=== PATIENT | male | born 1965 | race Caucasian/White ===

== ENCOUNTER 2020-03-15 05:11 | Inpatient (IN) | payer MEDICARE ==
[2020-03-15 05:48] LABS: #Basophils 0.1 thou/uL (0.0-0.2); #Eosinphils 0.1 thou/uL (0.0-0.7); #Lymphocytes 2.3 thou/uL (1.20-3.40); #Monocytes 0.6 thou/uL (0.11-0.59); #Neutrophils 7.5 thou/uL (1.40-6.50); %Basophils 0.7 % (0.0-1.0); %Eosinophils 1.3 % (0.0-10.0); %Lymphocytes 21.7 % (21.0-51.0); %Monocytes 5.3 % (0.0-10.0); Mean Corpuscular HGB CONC 31.6 g/dL (32.0-36.0); Mean Corpuscular Hemoglobin 24.8 pg (27.0-31.0); Mean Corpuscular Volume 78.4 fL (78.0-98.0); Mean Platelet Volume 9.1 fL (7.4-10.4); Platelet Count 359 thou/uL (130-400); RBC Distribution Width 16.1 % (11.5-14.5); Red Blood Cell (RBC) Count 4.44 mill/uL (4.70-6.10); White Blood Cell (WBC) Count 10.5 thou/uL (4.8-10.8)
[2020-03-15 06:13] LABS: ALT (SGPT) 15 U/L (8-55); AST (SGOT) 19 U/L (5-34); Albumin 4.1 g/dL (3.5-5.0); Alkaline Phosphatase 60 U/L (40-110); Anion Gap 16 mmol/L (10-20); BUN (Urea Nitrogen) 24 mg/dL (8.4-25.7); Bilirubin, Total 0.9 mg/dL (0.2-1.2); Calc. Creatinine Clearance 0 mL/min (70-130); Calcium 9.4 mg/dL (7.8-10.44); Carbon Dioxide 19 mmol/L (22-29); Chloride 108 mmol/L (98-107); Estimated GFR-MDRD 50; Globulin 3.6 g/dL (2.4-3.5); Glucose 158 mg/dL (70-105); Magnesium 1.9 mg/dL (1.6-2.6); Potassium 4.9 mmol/L (3.5-5.1); Protein, Total 7.7 g/dL (6.0-8.3); Sodium 138 mmol/L (136-145)
[2020-03-15] MEDS ORDERED: Aspirin 325 MG TAB ONE (06:28)
[2020-03-15] MEDS ORDERED: Furosemide 40 MG/4 ML VIAL ONE (06:28)
[2020-03-15] MEDS ORDERED: Ketorolac Tromethamine 30 MG/ML VIAL ONE (06:33)
--- NOTE | 2020-03-15 07:55 | RAD ---
Exam: Chest one view HISTORY:Dyspnea Comparison: None FINDINGS: Pacemaker: Left-sided single lead defibrillator terminates over the right ventricle. Cardiac silhouette:Cardiomegaly Aorta: Unremarkable Pulmonary vessels: Prominent Costophrenic angles: Clear LUNGS: Scattered interstitial and alveolar opacities Pneumothorax: None Osseous abnormalities: None IMPRESSION: 1. Congestive heart failure.
[2020-03-15 09:12] LABS: Troponin I 0.052 ng/mL (< 0.028)
[2020-03-15] MEDS ORDERED: Dextrose 5% in Water 1,000 ML IV PRN (09:30)
[2020-03-15] MEDS ORDERED: Ondansetron ODT 4 MG TAB PO PRN (09:30)
[2020-03-15] MEDS ORDERED: Ondansetron PF 4 MG/2 ML Vial IVP PRN (09:30)
[2020-03-15] MEDS ORDERED: Dextrose 50% Abboject 50 ML SYRINGE SLOW IVP PRN (09:30)
[2020-03-15] MEDS ORDERED: hydrALAZINE 20 MG/ML VIAL SLOW IVP PRN (09:30)
[2020-03-15] MEDS ORDERED: Benzonatate 100 MG CAP PO PRN (09:30)
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
[2020-03-15] MEDS: HumaLOG 300 UNITS/3 ML VIAL SC PRN ×2 (11:16→22:20)
[2020-03-15] MEDS ORDERED: Furosemide 40 MG/4 ML VIAL SLOW IVP SCH (11:30)
[2020-03-15] MEDS: Acetaminophen 500 MG TAB PO PRN ×2 (11:54→19:03)
[2020-03-15] MEDS ORDERED: Carvedilol 3.125 MG TAB PO SCH (14:15)
[2020-03-15] MEDS: Furosemide 40 MG/4 ML VIAL SLOW IVP SCH (15:09)
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
[2020-03-15] MEDS: Famotidine 20 MG TAB PO SCH (21:04)
[2020-03-15] MEDS ORDERED: HYDROcodone/Acetaminophen 5/325 mg Tablet PO SCH (23:15)
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
[2020-03-15 23:51] LABS: Troponin I 0.074 ng/mL (< 0.028)
[2020-03-16 05:38] LABS: Anion Gap 15 mmol/L (10-20); BUN (Urea Nitrogen) 40 mg/dL (8.4-25.7); Calc. Creatinine Clearance 46 mL/min (70-130); Calcium 8.6 mg/dL (7.8-10.44); Carbon Dioxide 21 mmol/L (22-29); Chloride 104 mmol/L (98-107); Estimated GFR-MDRD 37; Glucose 140 mg/dL (70-105); Sodium 136 mmol/L (136-145)
[2020-03-16] MEDS: Furosemide 40 MG/4 ML VIAL SLOW IVP SCH ×2 (05:42→14:37)
[2020-03-16 05:56] LABS: Band 5 % (5-11); Hemoglobin 10.7 g/dL (14.0-18.0); Lymphocytes 22 % (21-51); MDiff Complete? YES; Mean Corpuscular Hemoglobin 24.6 pg (27.0-31.0); Mean Corpuscular Volume 76.8 fL (78.0-98.0); Mean Platelet Volume 9.4 fL (7.4-10.4); Monocytes 6 % (0-10); Neutrophil 66 % (42-75); Platelet Count 318 thou/uL (130-400); RBC Distribution Width 16.4 % (11.5-14.5); Red Blood Cell (RBC) Count 4.35 mill/uL (4.70-6.10); White Blood Cell (WBC) Count 6.9 thou/uL (4.8-10.8)
[2020-03-16] MEDS ORDERED: Carvedilol 3.125 MG TAB PO SCH (08:00)
[2020-03-16] MEDS: Famotidine 20 MG TAB PO SCH (08:29)
[2020-03-16] MEDS: Carvedilol 3.125 MG TAB PO SCH ×2 (08:30→17:45)
[2020-03-16] MEDS ORDERED: Milrinone 20 MG in Sodium Chloride 0.9% 100 ML IVPB SCH (08:45)
[2020-03-16] MEDS ORDERED: Milrinone Lactate/D5W 20 MG in Premix Bag 1 BAG IVPB SCH (09:00)
[2020-03-16] MEDS ORDERED: Aspirin 81 mg Enteric Coated Tablet PO SCH (09:00)
[2020-03-16] MEDS ORDERED: Magnesium 2 GM/50 ML 2 GM in Premix Bag 1 BAG IVPB SCH (09:00)
--- NOTE | 2020-03-16 09:31 | PDOC.CPN ---
- Subjective Date: 03/16/20 Time: 08:00 Interval history: The pt seen and examined. No overnight events. No cardiac complaints. He stated he can breath better today - Objective Allergies/Adverse Reactions: Allergies Allergy/AdvReac Type Severity Reaction Status Date / Time No Known Allergies Allergy Unverified 03/15/20 08:36 Visit Medications: Current Medications Acetaminophen (Tylenol) 1,000 mg PO Q6H PRN PRN Reason: Mild Pain (1-3) Last Admin: 03/15/20 19:03 Dose: 1,000 mg Aspirin (Ecotrin) 81 mg PO DAILY [facility] Last Admin: 03/16/20 08:29 Dose: 81 mg Benzonatate (Tessalon) 100 mg PO Q6H PRN PRN Reason: Cough Carvedilol (Coreg) 3.125 mg PO BID-[facility] Last Admin: 03/16/20 08:30 Dose: 3.125 mg Dextrose/Water (Dextrose 50%) 25 gm SLOW IVP PRN PRN PRN Reason: Hypoglycemia Famotidine (Pepcid) 20 mg PO BID [facility] Last Admin: 03/16/20 08:29 Dose: 20 mg Furosemide (Lasix) 40 mg SLOW IVP 0600,1400 [facility] Last Admin: 03/16/20 05:42 Dose: 40 mg Glucagon (Glucagon) 1 mg IM PRN PRN PRN Reason: Hypoglycemia Hydralazine HCl (Apresoline) 10 mg SLOW IVP Q4H PRN PRN Reason: SBP > 180 and HR < 70 Dextrose/Water (D5w) 1,000 mls @ 0 mls/hr IV .Q0M PRN PRN Reason: Hypoglycemia Milrinone Lactate/Dextrose 20 (mg/ Device) 100 mls @ 2.77 mls/hr IVPB INF [facility]; Protocol Magnesium Sulfate 2 gm/ Device 50 mls @ 50 mls/hr IVPB 0900 [facility] Stop: 03/16/20 11:00 Insulin Human Lispro (Humalog) 0 units SC .MILD SLIDING SCALE PRN PRN Reason: Mild Correctional Scale Last Admin: 03/15/20 11:16 Dose: 4 unit Insulin Human Lispro (Humalog) 0 units SC .BEDTIME SLIDING SC PRN PRN Reason: Bedtime Correctional Scale Last Admin: 03/15/20 22:20 Dose: 2 unit Ondansetron HCl (Zofran Odt) 4 mg PO Q6H PRN PRN Reason: Nausea/Vomiting Ondansetron HCl (Zofran) 4 mg IVP Q6H PRN PRN Reason: Nausea/Vomiting Sodium Chloride (Flush - Normal Saline) 10 ml IVF Q12HR [facility]ID Last Admin: 03/16/20 08:30 Dose: 10 ml Sodium Chloride (Flush - Normal Saline) 10 ml IVF PRN PRN PRN Reason: Saline Flush Vital Signs & Weight: Vital Signs Temp Pulse Resp BP Pulse Ox 03/16/20 07:39 97.5 F L 103 H 20 121/68 98 03/16/20 04:41 97.7 F 96 20 119/91 H 95 03/16/20 00:00 97.7 F 97 20 122/92 H 100 Weight 163 lb 12.8 oz - Physical Exam General: alert & oriented x3 HEENT: mucus membranes moist Neck: supple neck Cardiac: regular rate and rhythm, S1/S2 Lungs: clear to auscultation, decreased breath sounds Neuro: cranial nerve 2-12 intact Extremities: no edema Skin: clear - Labs Result Diagrams: 03/16/20 04:58 03/16/20 04:58 Troponin/CKMB CK-MB (CK-2) 2.0 ng/mL (0-6.6) 03/15/20 05:40 Troponin I 0.074 ng/mL (< 0.028) H 03/15/20 23:18 - Telemetry Sinus rhythms and dysrhythmias: sinus rhythm - Assessment/Plan Assessment/Plan: 1. Acute on Chronic systolic HF with EF 15-20% - his resp has been improving slowly with Lasix 40mg IV BID; will increase Coreg to 3.125mg BID; since still low urine output, will start Milrinone 0.125mcg/kg/min without titration for now (pharmacy already put the order for the pt. Thank you!). Will adjust his CHF tx plan per Dr Sampson's insight; 2. Ischemic CMY with hx of [facility] AICD in 2013 3. CAD with hx of stent x1 in 2013 - Asymptomatic for now; indeterminate trop due to demand ischemia 2/2 acute on chronic systoric HF; On Coreg, ASA, and Lipitor 4. HTN - mildly hypotensive with current medication; cont. to monitor 5. HLD - on statin 6. DM type 2 7. Chronic pain syndrome - the pt is willing to stop marijuana 8. Mod-sever MR - cont. to monitor 9. Tobacco and ilicit drug abuse - the pt is willing to start smoking and ilicit drug cessation MAR reviewed * Echo on 03/15/2020 with EF 15-20%, mild LAE, mod-severe MR, mild-mod TR, and mild MO Pt. seen and eval. by me. I agree with the A/P by the SENIOR PYTHON DEVELOPER. With the diuretics the creat. has increased and he will likely need inotropic support. The renal function will hopefully improve. Chest clear. Mild tachycardia. No edema. Abdomen slightly distended, likely some ascites.
--- NOTE | 2020-03-16 11:12 | PDOC.HOSPP ---
- Subjective Encounter Date: 03/16/20 Encounter Time: 11:10 Subjective: f/u for new-dx systolic CHF with EF 15-20% tx with Lasix IV and Milrinone gtt. Feeling better overall with diuretics. - Objective Vital Signs & Weight: Vital Signs (12 hours) Temp Pulse Resp BP Pulse Ox 03/16/20 07:39 97.5 F L 103 H 20 121/68 98 03/16/20 04:41 97.7 F 96 20 119/91 H 95 03/16/20 00:00 97.7 F 97 20 122/92 H 100 Weight Weight 163 lb 12.8 oz I&O: 03/15/20 03/16/20 03/17/20 06:59 06:59 06:59 Intake Total 885 640 Output Total 925 1050 Balance -40 -410 Result Diagrams: 03/16/20 04:58 03/16/20 04:58 Additional Labs: Accuchecks 03/16/20 03/16/20 03/15/20 10:51 05:54 21:20 POC Glucose 221 H 151 H 234 H 03/15/20 16:46 POC Glucose 149 H Laboratory Tests 03/15/20 03/15/20 03/15/20 05:40 05:40 05:40 Hgb 11.0 L Creatinine 1.47 H Hemoglobin A1c Magnesium 1.9 B-Natriuretic Peptide 1129.3 H TSH 3rd Generation 03/15/20 03/15/20 03/16/20 11:23 11:23 04:59 Hgb Creatinine Hemoglobin A1c Magnesium 1.9 B-Natriuretic Peptide 1321.1 H TSH 3rd Generation 2.0073 03/16/20 04:59 Hgb Creatinine Hemoglobin A1c 7.0 H Magnesium B-Natriuretic Peptide TSH 3rd Generation Radiology Reviewed by me: Yes (Echo - EF 15-20%, mod-sev MR, mod TR, mild LAE) EKG Reviewed by me: Yes (Tele - SR) Hospitalist ROS - Medication Medications: Active Medications Generic Name Dose Route Start Last Admin Trade Name Freq PRN Reason Stop Dose Admin Acetaminophen 1,000 mg 03/15/20 09:30 03/15/20 19:03 Tylenol PO 1,000 mg Q6H PRN Administration Mild Pain (1-3) Aspirin 81 mg 03/16/20 09:00 03/16/20 08:29 Ecotrin PO 81 mg DAILY DAVID Administration Carvedilol 3.125 mg 03/16/20 08:00 03/16/20 08:30 Coreg PO 3.125 mg BID-WM DAVID Administration Famotidine 20 mg 03/15/20 21:00 03/16/20 08:29 Pepcid PO 20 mg BID DAVID Administration Furosemide 40 mg 03/15/20 14:00 03/16/20 05:42 Lasix SLOW IVP 40 mg 0600,1400 DAVID Administration Milrinone Lactate/Dextrose 20 100 mls @ 2.77 mls/hr 03/16/20 09:00 03/16/20 10:18 mg/ Device IVPB 100 mls INF DAVID Administration Protocol Titrate Insulin Human Lispro 0 units 03/15/20 09:30 03/15/20 11:16 Humalog SC 4 unit .MILD SLIDING SCALE PRN Administration Mild Correctional Scale Insulin Human Lispro 0 units 03/15/20 09:30 03/15/20 22:20 Humalog SC 2 unit .BEDTIME SLIDING SC PRN Administration Bedtime Correctional Scale Sodium Chloride 10 ml 03/15/20 21:00 03/16/20 08:30 Flush - Normal Saline IVF 10 ml Q12HR DAVID Administration - Exam General Appearance: NAD, awake alert Eye: PERRL, anicteric sclera ENT: normocephalic atraumatic, no oropharyngeal lesions Neck: supple, symmetric, no JVD, no thyromegaly Heart: RRR, no gallops, no rubs, normal peripheral pulses Heart - other findings: S1, S2 Respiratory: CTAB, no wheezes, no rales, no ronchi, normal chest expansion Gastrointestinal: soft, non-tender, non-distended, normal bowel sounds, no palpable masses, no hepatomegaly Extremities: no cyanosis, no clubbing, no edema Skin: normal turgor, no lesions Neurological: cranial nerve grossly intact, no new deficit Musculoskeletal: normal tone, normal strength, no muscle wasting Psychiatric: normal affect, A&O x 3 Hosp A/P (1) Acute systolic CHF (congestive heart failure) Code(s): I50.21 - ACUTE SYSTOLIC (CONGESTIVE) HEART FAILURE Status: Acute Plan: EF 15-20%, continue Lasix IV, Milrinone gtt, Coreg/ASA, consider Entresto if BP allows (2) Ischemic cardiomyopathy Code(s): I25.5 - ISCHEMIC CARDIOMYOPATHY Status: Acute Plan: See above, maximize medical therapy, may need repeat cardiac cath, AICD (3) NSTEMI (non-ST elevated myocardial infarction) Code(s): I21.4 - NON-ST ELEVATION (NSTEMI) MYOCARDIAL INFARCTION Status: Acute (4) CKD (chronic kidney disease), stage III Code(s): N18.3 - CHRONIC KIDNEY DISEASE, STAGE 3 (MODERATE) Status: Acute Plan: Monitor renal function, avoid nephrotoxic meds and limit contrast exposure (5) Normocytic anemia Code(s): D64.9 - ANEMIA, UNSPECIFIED Status: Acute Plan: Check Iron studies, stool hemoccult, serial H/H (6) DM II (diabetes mellitus, type II), controlled Code(s): E11.9 - TYPE 2 DIABETES MELLITUS WITHOUT COMPLICATIONS Status: Chronic Plan: ISS, serial accuchecks, hold oral hypoglycemic due to depressed renal function, A1C = 7 (7) Tobacco abuse Code(s): Z72.0 - TOBACCO USE Status: Chronic Plan: Cessation resources, consider Nicotine patch - Plan social insurance administrator, out of bed/ambulate, DVT proph w/SCDs Continue Lasix 40mg IV BID Continue Milrinone gtt Coreg/ASA, consider Entresto if BP allows Tobacco cessation resources Resume home meds AM lab: BMP, H/H, Iron/Ferritin/Retic/Stool occult
[2020-03-16] MEDS: HumaLOG 300 UNITS/3 ML VIAL SC PRN ×2 (12:01→21:54)
[2020-03-16] MEDS: Gabapentin 300 MG CAP PO SCH ×2 (14:37→21:54)
--- NOTE | 2020-03-16 16:08 | EKG ---
Test Reason : STAT Blood Pressure : / mmHG Vent. Rate : 100 BPM Atrial Rate : 100 BPM P-R Int : 182 ms QRS Dur : 092 ms QT Int : 362 ms P-R-T Axes : 077 223 081 degrees QTc Int : 466 ms Normal sinus rhythm Left atrial enlargement Incomplete right bundle branch block Anterolateral infarct , age undetermined Abnormal ECG Confirmed by CORINA SMALLWOOD ([id number]) on 03/16/2020 4:07:55 PM Referred By: VANCE Confirmed By:CORINA SMALLWOOD
[2020-03-16] MEDS ORDERED: Carvedilol 6.25 MG TAB PO SCH (17:30)
[2020-03-16] MEDS ORDERED: Nitroglycerin 0.4 MG TAB (25 Tab Bottle) SL PRN (18:33)
[2020-03-16] MEDS: Milrinone Lactate/D5W 20 MG in Premix Bag 1 BAG IVPB SCH (19:13)
[2020-03-16] MEDS: Acetaminophen 500 MG TAB PO PRN (21:53)
[2020-03-16] MEDS: DULoxetine 60 MG CAP PO SCH (21:54)
[2020-03-16] MEDS: Atorvastatin Calcium 40 MG TAB PO SCH (21:54)
[2020-03-17 05:35] LABS: Hemoglobin 11.2 g/dL (14.0-18.0); Platelet Count 290 thou/uL (130-400)
[2020-03-17 05:36] LABS: Reticulocyte Count 2.2 % (0.5-1.5)
[2020-03-17 05:55] LABS: Anion Gap 15 mmol/L (10-20); BUN (Urea Nitrogen) 32 mg/dL (8.4-25.7); Calc. Creatinine Clearance 56 mL/min (70-130); Calcium 9.1 mg/dL (7.8-10.44); Carbon Dioxide 22 mmol/L (22-29); Chloride 103 mmol/L (98-107); Estimated GFR-MDRD 47; Glucose 152 mg/dL (70-105); Iron 23 ug/dL (65-175); Potassium 3.8 mmol/L (3.5-5.1); Sodium 136 mmol/L (136-145)
[2020-03-17] MEDS: Milrinone Lactate/D5W 20 MG in Premix Bag 1 BAG IVPB SCH ×2 (06:21→18:35)
[2020-03-17] MEDS: Furosemide 40 MG/4 ML VIAL SLOW IVP SCH ×2 (06:21→13:09)
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
[2020-03-17] MEDS: Carvedilol 6.25 MG TAB PO SCH ×2 (09:09→16:15)
[2020-03-17] MEDS: DULoxetine 60 MG CAP PO SCH ×2 (09:09→21:51)
[2020-03-17] MEDS: Aspirin 325 mg Enteric Coated Tablet PO SCH (09:09)
[2020-03-17] MEDS: Tamsulosin HCl 0.4 MG CAP PO SCH (09:10)
[2020-03-17] MEDS: Fish Oil 1,000 MG CAP PO SCH (09:10)
[2020-03-17] MEDS: Fenofibrate Nanocrystallized 145 MG TAB PO SCH (09:10)
[2020-03-17] MEDS: Famotidine 20 MG TAB PO SCH (09:10)
[2020-03-17] MEDS: Multivit, Therapeutic 1 TAB PO SCH (09:10)
[2020-03-17] MEDS: Gabapentin 300 MG CAP PO SCH ×3 (09:10→21:54)
--- NOTE | 2020-03-17 11:37 | PDOC.HOSPP ---
- Subjective Encounter Date: 03/17/20 Encounter Time: 11:30 Subjective: f/u for new-onset CHF on current Milrinone/Lasix/ASA/Lipitor/Coreg. States feeling ok overall. - Objective Vital Signs & Weight: Vital Signs (12 hours) Temp Pulse Resp BP BP Pulse Ox 03/17/20 11:28 97.4 F L 80 18 92/75 96 03/17/20 09:09 117/78 03/17/20 07:43 98.0 F 86 16 102/74 96 03/17/20 04:00 98.3 F 84 18 117/73 97 03/17/20 00:00 98.5 F 89 16 100/69 95 Weight Weight 161 lb I&O: 03/16/20 03/17/20 03/18/20 06:59 06:59 06:59 Intake Total 885 1750 350 Output Total 925 3000 2325 [facility] -40 -1250 -1975 Result Diagrams: 03/17/20 15:08 03/17/20 15:08 Additional Labs: Accuchecks 03/17/20 03/17/20 03/16/20 10:34 06:37 20:17 POC Glucose 305 H 148 H 223 H 03/16/20 16:50 POC Glucose 162 H Microbiology 03/16/20 17:49 Stool - Formed Stool Occult Blood (HERIBERTO) - Final Laboratory Tests 03/15/20 03/15/20 03/15/20 05:40 05:40 05:40 Hgb 11.0 L Retic Count Immature Retic Fraction BUN Creatinine 1.47 H Hemoglobin A1c Magnesium 1.9 Iron Ferritin B-Natriuretic Peptide 1129.3 H TSH 3rd Generation 03/15/20 03/15/20 03/16/20 11:23 11:23 04:58 Hgb Retic Count Immature Retic Fraction BUN 40 H Creatinine 1.88 H Hemoglobin A1c Magnesium 1.9 Iron Ferritin B-Natriuretic Peptide TSH 3rd Generation 2.0073 03/16/20 03/16/20 03/17/20 04:59 04:59 05:07 Hgb Retic Count Immature Retic Fraction BUN Creatinine Hemoglobin A1c 7.0 H Magnesium Iron 23 L Ferritin B-Natriuretic Peptide 1321.1 H TSH 3rd Generation 03/17/20 03/17/20 05:07 05:07 Hgb Retic Count 2.2 H Immature Retic Fraction 0.527 H BUN Creatinine Hemoglobin A1c Magnesium Iron Ferritin 37.75 B-Natriuretic Peptide TSH 3rd Generation Radiology Reviewed by me: Yes (Echo - EF 15-20%) EKG Reviewed by me: Yes (Tele - SR) Hospitalist ROS - Medication Medications: Active Medications Generic Name Dose Route Start Last Admin Trade Name Freq PRN Reason Stop Dose Admin Acetaminophen 1,000 mg 03/15/20 09:30 03/16/20 21:53 Tylenol PO 1,000 mg Q6H PRN Administration Mild Pain (1-3) Aspirin 325 mg 03/17/20 09:00 03/17/20 09:09 Ecotrin PO 325 mg DAILY DAVID Administration Atorvastatin Calcium 40 mg 03/16/20 21:00 03/16/20 21:54 Lipitor PO 40 mg HS DAVID Administration Carvedilol 6.25 mg 03/17/20 08:00 03/17/20 09:09 Coreg PO 6.25 mg BID-WM DAVID Administration Duloxetine HCl 60 mg 03/16/20 21:00 03/17/20 09:09 Cymbalta PO 60 mg BID DAVID Administration Famotidine 20 mg 03/17/20 09:00 03/17/20 09:10 Pepcid PO 20 mg 0900 DAVID Administration Fenofibrate 145 mg 03/17/20 09:00 03/17/20 09:10 Tricor PO 145 mg DAILY DAVID Administration Fish Oil 1,000 mg 03/17/20 09:00 03/17/20 09:10 Fish Oil PO 1,000 mg DAILY DAVID Administration Furosemide 40 mg 03/15/20 14:00 03/17/20 06:21 Lasix SLOW IVP 40 mg 0600,1400 DAVID Administration Gabapentin 600 mg 03/16/20 15:00 03/17/20 09:10 Neurontin PO 600 mg TID DAVID Administration Milrinone Lactate/Dextrose 20 100 mls @ 8.35 mls/hr 03/16/20 19:15 03/17/20 06:21 mg/ Device IVPB 100 mls INF DAVID Administration Protocol 0.375 MCG/KG/MIN Insulin Human Lispro 0 units 03/15/20 09:30 03/16/20 12:01 Humalog SC 3 unit .MILD SLIDING SCALE PRN Administration Mild Correctional Scale Insulin Human Lispro 0 units 03/15/20 09:30 03/16/20 21:54 Humalog SC 2 unit .BEDTIME SLIDING SC PRN Administration Bedtime Correctional Scale Multivitamins 1 tab 03/17/20 09:00 03/17/20 09:10 Theragran PO 1 tab DAILY DAVID Administration Sodium Chloride 10 ml 03/15/20 21:00 03/17/20 09:10 Flush - Normal Saline IVF 10 ml Q12HR DAVID Administration Tamsulosin HCl 0.4 mg 03/17/20 09:00 03/17/20 09:10 Flomax PO 0.4 mg DAILY DAVID Administration - Exam General Appearance: NAD, awake alert Eye: PERRL, anicteric sclera ENT: normocephalic atraumatic, no oropharyngeal lesions Neck: supple, symmetric, no JVD, no thyromegaly Heart: RRR, no gallops, no rubs, normal peripheral pulses Heart - other findings: S1, S2 Respiratory: CTAB, no wheezes, no rales, no ronchi, normal chest expansion Gastrointestinal: soft, non-tender, normal bowel sounds, no palpable masses Extremities: no cyanosis, no clubbing, no edema Skin: normal turgor, no lesions Neurological: cranial nerve grossly intact, no new deficit Musculoskeletal: normal tone, generalized weakness Psychiatric: normal affect, A&O x 3 Hosp A/P (1) Acute systolic CHF (congestive heart failure) Code(s): I50.21 - ACUTE SYSTOLIC (CONGESTIVE) HEART FAILURE Status: Acute Plan: Continue Lasix/Milrinone/Coreg/ASA, plan for C on 03/20/20 (2) Ischemic cardiomyopathy Code(s): I25.5 - ISCHEMIC CARDIOMYOPATHY Status: Acute Plan: See above, continue medical mgmt (3) NSTEMI (non-ST elevated myocardial infarction) Code(s): I21.4 - NON-ST ELEVATION (NSTEMI) MYOCARDIAL INFARCTION Status: Acute (4) CKD (chronic kidney disease), stage III Code(s): N18.3 - CHRONIC KIDNEY DISEASE, STAGE 3 (MODERATE) Status: Acute (5) Normocytic anemia Code(s): D64.9 - ANEMIA, UNSPECIFIED Status: Acute Plan: Iron-deficiency component, IV Iron infusion today, serial H/H (6) DM II (diabetes mellitus, type II), controlled Code(s): E11.9 - TYPE 2 DIABETES MELLITUS WITHOUT COMPLICATIONS Status: Chronic (7) Tobacco abuse Code(s): Z72.0 - TOBACCO USE Status: Chronic - Plan continue antibiotics, PT/OT, drug abuse social worker, out of bed/ambulate, DVT proph w/ SCDs Continue Lasix 40mg IV BID Continue Milrinone gtt Coreg/ASA, consider Entresto if BP allows IV Iron 200mg x 1 today Tobacco cessation resources Magnesium Citrate 300ml x 1 today Resume home meds AM lab: BMP, H/H
[2020-03-17] MEDS: HumaLOG 300 UNITS/3 ML VIAL SC PRN ×3 (11:40→21:57)
[2020-03-17] MEDS: Acetaminophen 500 MG TAB PO PRN (11:41)
[2020-03-17] MEDS ORDERED: Communication Order-Pharmacy FS SCH (12:00)
[2020-03-17] MEDS ORDERED: Magnesium Citrate 300 ML BOT PO SCH (12:00)
[2020-03-17] MEDS ORDERED: Iron Sucrose Complex 200 MG in Sodium Chloride 0.9% 250 ML 250 ML IVPB SCH (12:00)
[2020-03-17] MEDS ORDERED: Iron, Sodium Ferric Gluconate 250 MG in Sodium Chloride 0.9% 100 ML IVPB SCH (12:15)
[2020-03-17] MEDS ORDERED: Amoxicillin/Potassium Clav 500 MG TAB PO SCH (12:15)
--- NOTE | 2020-03-17 12:52 | PDOC.CPN ---
- Subjective Date: 03/17/20 Time: 12:56 Interval history: The pt seen and examined. No overnight events. No cardiac complaints. - Objective Allergies/Adverse Reactions: Allergies Allergy/AdvReac Type Severity Reaction Status Date / Time No Known Allergies Allergy Unverified 03/15/20 08:36 Visit Medications: Current Medications Acetaminophen (Tylenol) 1,000 mg PO Q6H PRN PRN Reason: Mild Pain (1-3) Last Admin: 03/17/20 11:41 Dose: 1,000 mg Amoxicillin/Clavulanate Potassium (Augmentin) 500 mg PO Q12HR [facility] Amoxicillin/Clavulanate Potassium (Augmentin) 500 mg PO NOW [facility] Stop: 03/17/20 14:15 Aspirin (Ecotrin) 325 mg PO DAILY [facility] Last Admin: 03/17/20 09:09 Dose: 325 mg Atorvastatin Calcium (Lipitor) 40 mg PO HS [facility] Last Admin: 03/16/20 21:54 Dose: 40 mg Benzonatate (Tessalon) 100 mg PO Q6H PRN PRN Reason: Cough Carvedilol (Coreg) 6.25 mg PO BID-[facility] Last Admin: 03/17/20 09:09 Dose: 6.25 mg Dextrose/Water (Dextrose 50%) 25 gm SLOW IVP PRN PRN PRN Reason: Hypoglycemia Duloxetine HCl (Cymbalta) 60 mg PO BID [facility] Last Admin: 03/17/20 09:09 Dose: 60 mg Enoxaparin Sodium (Lovenox) 40 mg SC 2100 [facility] Stop: 03/19/20 21:01 Famotidine (Pepcid) 20 mg PO 0900 [facility] Last Admin: 03/17/20 09:10 Dose: 20 mg Fenofibrate (Tricor) 145 mg PO DAILY [facility] Last Admin: 03/17/20 09:10 Dose: 145 mg Fish Oil (Fish Oil) 1,000 mg PO DAILY [facility] Last Admin: 03/17/20 09:10 Dose: 1,000 mg Furosemide (Lasix) 40 mg SLOW IVP 0600,1400 [facility] Last Admin: 03/17/20 06:21 Dose: 40 mg Gabapentin (Neurontin) 600 mg PO TID [facility] Last Admin: 03/17/20 09:10 Dose: 600 mg Glucagon (Glucagon) 1 mg IM PRN PRN PRN Reason: Hypoglycemia Hydralazine HCl (Apresoline) 10 mg SLOW IVP Q4H PRN PRN Reason: SBP > 180 and HR < 70 Dextrose/Water (D5w) 1,000 mls @ 0 mls/hr IV .Q0M PRN PRN Reason: Hypoglycemia Milrinone Lactate/Dextrose 20 (mg/ Device) 100 mls @ 8.35 mls/hr IVPB INF [facility]; Protocol Last Admin: 03/17/20 06:21 Dose: 100 mls Ferric Sodium Gluconate Complex 250 mg/ Sodium Chloride 120 mls @ 60 mls/hr IVPB NOW [facility] Stop: 03/17/20 14:14 Insulin Human Lispro (Humalog) 0 units SC .MILD SLIDING SCALE PRN PRN Reason: Mild Correctional Scale Last Admin: 03/17/20 11:40 Dose: 5 unit Insulin Human Lispro (Humalog) 0 units SC .BEDTIME SLIDING SC PRN PRN Reason: Bedtime Correctional Scale Last Admin: 03/16/20 21:54 Dose: 2 unit Magnesium Citrate (Citrate Of Magnesia 300 Ml Bot) 300 ml PO NOW [facility] Stop: 03/17/20 14:00 Multivitamins (Theragran) 1 tab PO DAILY [facility] Last Admin: 03/17/20 09:10 Dose: 1 tab Nitroglycerin (Nitrostat) 0.4 mg SL Q5MIN PRN PRN Reason: Chest Pain Ondansetron HCl (Zofran Odt) 4 mg PO Q6H PRN PRN Reason: Nausea/Vomiting Ondansetron HCl (Zofran) 4 mg IVP Q6H PRN PRN Reason: Nausea/Vomiting Sodium Chloride (Flush - Normal Saline) 10 ml IVF Q12HR [facility] Last Admin: 03/17/20 09:10 Dose: 10 ml Sodium Chloride (Flush - Normal Saline) 10 ml IVF PRN PRN PRN Reason: Saline Flush Tamsulosin HCl (Flomax) 0.4 mg PO DAILY [facility] Last Admin: 03/17/20 09:10 Dose: 0.4 mg Tramadol HCl (Ultram) 100 mg PO [facility] Vital Signs & Weight: Vital Signs Temp Pulse Pulse Pulse Resp BP BP 03/17/20 11:28 97.4 F L 80 18 03/17/20 10:56 80 80 92/75 03/17/20 10:52 82 81 99/80 03/17/20 09:34 85 107/71 03/17/20 09:09 117/78 03/17/20 07:43 98.0 F 86 16 03/17/20 04:00 98.3 F 84 18 BP BP Pulse Ox 03/17/20 11:28 92/75 96 03/17/20 10:56 99/80 03/17/20 10:52 105/72 03/17/20 09:34 92/78 03/17/20 09:09 03/17/20 07:43 102/74 96 03/17/20 04:00 117/73 97 Weight 161 lb - Physical Exam General: alert & oriented x3 HEENT: mucus membranes moist Neck: supple neck Cardiac: regular rate and rhythm, S1/S2 Lungs: decreased breath sounds Neuro: cranial nerve 2-12 intact - Labs Result Diagrams: 03/17/20 05:07 03/17/20 05:07 Troponin/CKMB CK-MB (CK-2) 2.0 ng/mL (0-6.6) 03/15/20 05:40 Troponin I 0.030 ng/mL (< 0.028) H 03/16/20 17:43 - Telemetry Sinus rhythms and dysrhythmias: sinus rhythm - Assessment/Plan Assessment/Plan: 1. Acute on Chronic systolic HF with EF 15-20% - stable with Lasix 40mg IV BID, Coreg 6.25mg BID, and Milrinone 0.375mcg/kg/min; Plan for Cath on Friday; Appreciate Dr Sampson's insight; 2. Ischemic CMY with hx of [facility] AICD in 2013 3. CAD with hx of stent x1 in LAD in 2013 - Plan for [facility] on Friday; On Coreg, ASA, and Lipitor 4. HTN - mildly hypotensive with current medication; cont. to monitor 5. HLD - on statin 6. DM type 2 7. Chronic pain syndrome - the pt is willing to stop marijuana 8. Mod-sever MR - cont. to monitor 9. Tobacco and ilicit drug abuse - the pt is willing to start smoking and ilicit drug cessation MAR reviewed * Echo on 03/15/2020 with EF 15-20%, mild LAE, mod-severe MR, mild-mod TR, and mild VT Pt. seen and eval. by me. I agree with the A/P by the [employer] HELPER. He is feeling better today after diuresing. He denies chest pain, Chest clear. RRR. No edema, abd. less disteded. Plan for cath on Friday.
[2020-03-17 15:17] LABS: #Eosinphils 0.2 thou/uL (0.0-0.7); #Lymphocytes 1.6 thou/uL (1.20-3.40); #Monocytes 0.5 thou/uL (0.11-0.59); #Neutrophils 3.3 thou/uL (1.40-6.50); %Basophils 0.4 % (0.0-1.0); %Eosinophils 3.1 % (0.0-10.0); %Lymphocytes 28.9 % (21.0-51.0); %Monocytes 8.3 % (0.0-10.0); %Neutrophils 59.3 % (42.0-75.0); Hemoglobin 11.6 g/dL (14.0-18.0); Mean Corpuscular HGB CONC 31.8 g/dL (32.0-36.0); Mean Corpuscular Hemoglobin 24.1 pg (27.0-31.0); Mean Corpuscular Volume 75.9 fL (78.0-98.0); Platelet Count 350 thou/uL (130-400); RBC Distribution Width 16.2 % (11.5-14.5); Red Blood Cell (RBC) Count 4.81 mill/uL (4.70-6.10); White Blood Cell (WBC) Count 5.6 thou/uL (4.8-10.8)
[2020-03-17 15:39] LABS: Anion Gap 18 mmol/L (10-20); BUN (Urea Nitrogen) 33 mg/dL (8.4-25.7); Calc. Creatinine Clearance 48 mL/min (70-130); Calcium 9.5 mg/dL (7.8-10.44); Carbon Dioxide 22 mmol/L (22-29); Chloride 100 mmol/L (98-107); Estimated GFR-MDRD 39; Glucose 166 mg/dL (70-105); Magnesium 2.6 mg/dL (1.6-2.6); Potassium 4.1 mmol/L (3.5-5.1); Sodium 136 mmol/L (136-145)
--- NOTE | 2020-03-17 16:06 | EKG ---
Test Reason : Blood Pressure : / mmHG Vent. Rate : 086 BPM Atrial Rate : 086 BPM P-R Int : 172 ms QRS Dur : 100 ms QT Int : 404 ms P-R-T Axes : 034 209 052 degrees QTc Int : 483 ms Sinus rhythm with frequent Premature ventricular complexes Possible Left atrial enlargement Septal infarct , age undetermined cannot be excluded Lateral infarct , age undetermined cannot be excluded Abnormal ECG Confirmed by CORINA SMALLWOOD ([id number]) on 03/17/2020 4:05:42 PM Referred By: KAR Confirmed By:CORINA SMALLWOOD
[2020-03-17] MEDS: Atorvastatin Calcium 40 MG TAB PO SCH (21:51)
[2020-03-17] MEDS: Amoxicillin/Potassium Clav 500 MG TAB PO SCH (21:51)
[2020-03-17] MEDS: Enoxaparin Sodium 40 MG/0.4 ML SYRINGE SC SCH (21:53)
[2020-03-17] MEDS: traMADol HCl 50 MG TAB PO SCH (21:54)
--- NOTE | 2020-03-18 06:21 | PRG ---
DATE OF SERVICE: 03/17/2020 This is an Advanced Heart Failure Consulting Service. SUBJECTIVE: Mr. Pink had an excellent day. He improved significantly with the initiation of Milrinone drip, which was titrated up to 0.375 mcg/kg per minute. He felt much more relaxed, able to breathe easily and had much more exertional tolerance. He said that he was able to walk down the nava and then go to the indoor courtyard twice and walk back without any problem. That is more than three times the walking distance that he was able to do 2 days ago. He also had a large urine output and that he noticed that he can sleep almost nearly flat now. He is very pleased with these outcome. REVIEW OF SYSTEMS: GENERAL: No fever or chills, or productive cough. HEENT: No change in vision, hearing, or swallowing. PULMONARY: See HPI. CARDIOVASCULAR: No palpitations or syncope. GASTROINTESTINAL: He is eating well. GENITOURINARY: He is urinating well without difficulty. NEUROLOGIC: There are no focal deficits or weakness. INTEGUMENT: There is no new breakdown. MUSCULOSKELETAL: He still has somewhat the right shoulder joint pain. CURRENT MEDICATIONS: 1. Augmentin 500 mg every 12 hours. 2. Aspirin 325 mg daily. 3. Atorvastatin 40 mg daily. 4. Carvedilol 6.25 mg daily. 5. Fenofibrate 145 mg daily. 6. Fish oil 1 g daily. 7. Lasix 40 mg IV b.i.d. 8. Gabapentin 600 mg t.i.d. 9. Milrinone currently at 0.375 mcg/kg per minute. PHYSICAL EXAMINATION: VITAL SIGNS: His telemetry was reviewed. He is in sinus rhythm. There is occasional PVC. There are no concerning arrhythmia. His latest vitals are heart rate 84 and blood pressure 107/78. GENERAL: He is alert and conversational, reclining comfortably in bed, just about 20 degrees with head up, this is much lower than yesterday. HEENT: EOMI. Oropharynx benign, but he has bad dentition. Eventually, someone needs to look at his teeth. NECK: The JVP is about 8 cm. Positive hepatojugular reflux plus he is near euvolemic. PULMONARY: He has excellent air movement bilaterally. There are no rales bilaterally, so this is an improvement. CARDIAC: Regular rate and rhythm. S1/S2, however, there is distinct S4 gallop, there is also 2/6 holosystolic murmur at the apex with radiation to the left axilla. ABDOMEN: Soft, nontender, and mildly distended. The amount of fluid in the abdomen also has decreased. EXTREMITIES: Lower extremities are without edema. They are warm and well perfused. There are positive dorsalis pedis pulses bilaterally. LABORATORY DATA: His electrolyte shows sodium 136, potassium 3.8, BUN of 32, and there is a decrease in creatinine, it is 1.55, this is an improvement from 1.88 yesterday. ASSESSMENT: 54-year-old gentleman resides in likely [place] Heart Association stage C and also [place] Heart Association IIIB heart failure with reduced ejection fraction. The underlying cause is still uncertain. Milrinone at 0.375 mcg/kg per minute has provided sufficient augmentation for the heart to give enough cardiac output. Consequently, he has much better exertional tolerance and able to increases diuresis significantly. He is net negative at least 1250 mL today. He has urine output of 2325 mL already. He is currently near euvolemia , so we can slow down the diuresis and keep him even. He should be ready for catheterization on Friday. The catheterization results will point to the direction. If there is significant blockage that can be intervened, then the intervention will likely need to be done. After that, he may improve. If there are no intervenable lesions, then we will need to refer him to a center for evaluation for left ventricle assist device or heart transplant. The need for left ventricle assist device and also heart transplant evaluation was discussed. The patient wants to be referred to a center in [place] because that is where his daughter lives. He believes that he has enough family support that he can rally support to have someone to stay with him for 6 weeks post discharge. Consequently, if he has a good insurance then he is an excellent candidate for advanced heart failure therapy. RECOMMENDATIONS: 1. Continue Milrinone 0.375 mcg/kg per minute. 2. Continue carvedilol 6.25 mg b.i.d. 3. Stop IV Lasix after today. 4. Start Bumex 1 mg daily. This is meant to keep him even. 5. Please check labs daily. This includes CBC, BMP, magnesium, and then a BNP. It has been a pleasure taking care of Mr. Pink. If you have any questions, please give me a call. Job ID: [id number] MTDD
[2020-03-18 06:22] LABS: Hemoglobin 11.4 g/dL (14.0-18.0); Platelet Count 326 thou/uL (130-400)
[2020-03-18 06:23] LABS: #Basophils 0.1 thou/uL (0.0-0.2); #Eosinphils 0.3 thou/uL (0.0-0.7); #Lymphocytes 1.6 thou/uL (1.20-3.40); #Monocytes 0.5 thou/uL (0.11-0.59); #Neutrophils 3.7 thou/uL (1.40-6.50); %Basophils 1.1 % (0.0-1.0); %Eosinophils 4.5 % (0.0-10.0); %Lymphocytes 26.1 % (21.0-51.0); %Monocytes 8.3 % (0.0-10.0); Hemoglobin 11.5 g/dL (14.0-18.0); Mean Corpuscular HGB CONC 31.8 g/dL (32.0-36.0); Mean Corpuscular Hemoglobin 24.3 pg (27.0-31.0); Mean Corpuscular Volume 76.5 fL (78.0-98.0); Mean Platelet Volume 9.3 fL (7.4-10.4); Platelet Count 315 thou/uL (130-400); Red Blood Cell (RBC) Count 4.74 mill/uL (4.70-6.10); White Blood Cell (WBC) Count 6.2 thou/uL (4.8-10.8)
[2020-03-18] MEDS: Milrinone Lactate/D5W 20 MG in Premix Bag 1 BAG IVPB SCH (06:32)
[2020-03-18] MEDS: HumaLOG 300 UNITS/3 ML VIAL SC PRN ×3 (06:41→18:36)
[2020-03-18 06:45] LABS: Anion Gap 17 mmol/L (10-20); BUN (Urea Nitrogen) 32 mg/dL (8.4-25.7); Calc. Creatinine Clearance 60 mL/min (70-130); Calcium 9.2 mg/dL (7.8-10.44); Carbon Dioxide 19 mmol/L (22-29); Chloride 102 mmol/L (98-107); Estimated GFR-MDRD 52; Glucose 149 mg/dL (70-105); Magnesium 2.4 mg/dL (1.6-2.6); Potassium 4.2 mmol/L (3.5-5.1); Sodium 134 mmol/L (136-145)
[2020-03-18] MEDS: Tamsulosin HCl 0.4 MG CAP PO SCH (08:18)
[2020-03-18] MEDS: Fenofibrate Nanocrystallized 145 MG TAB PO SCH (08:18)
[2020-03-18] MEDS: Gabapentin 300 MG CAP PO SCH ×3 (08:18→22:43)
[2020-03-18] MEDS: Fish Oil 1,000 MG CAP PO SCH (08:18)
[2020-03-18] MEDS: Multivit, Therapeutic 1 TAB PO SCH (08:18)
[2020-03-18] MEDS: Acetaminophen 500 MG TAB PO PRN (08:18)
[2020-03-18] MEDS: DULoxetine 60 MG CAP PO SCH ×2 (08:18→22:45)
[2020-03-18] MEDS: Aspirin 325 mg Enteric Coated Tablet PO SCH (08:19)
[2020-03-18] MEDS: Famotidine 20 MG TAB PO SCH (08:19)
[2020-03-18] MEDS: Carvedilol 6.25 MG TAB PO SCH ×2 (08:19→18:24)
--- NOTE | 2020-03-18 08:23 | PDOC.HOSPP ---
- Subjective Encounter Date: 03/18/20 Encounter Time: 10:40 Subjective: Patient ambulating much better with less shortness of breath on the drip. Good urine output. He does have a blister on his left hand that drained this AM with core of white material. Had some redness up the hand from this but now gone. Doesn't remember rubbing or burning it. Started about the second day in the hospital. - Objective Vital Signs & Weight: Vital Signs (12 hours) Temp Pulse Resp BP BP Pulse Ox 03/18/20 08:00 98.2 F 100 16 121/81 99 03/18/20 07:29 94 L 03/18/20 04:43 97.5 F L 87 16 109/77 94 L 03/18/20 00:39 97.8 F 92 16 97/79 98 03/17/20 21:50 97.6 F 95 18 104/70 97 Weight Weight 160 lb I&O: 03/17/20 03/18/20 03/19/20 06:59 06:59 06:59 Intake Total 1750 350 Output Total 3000 3850 Balance -1250 -3500 Result Diagrams: 03/18/20 06:02 03/18/20 06:02 Additional Labs: Accuchecks 03/18/20 03/17/20 03/17/20 06:02 20:45 16:31 POC Glucose 161 H 255 H 194 H 03/17/20 10:34 POC Glucose 305 H Hospitalist ROS - Review of Systems Constitutional: denies: fever, chills Respiratory: denies: cough, shortness of breath Cardiovascular: denies: chest pain, palpitations Gastrointestinal: denies: nausea, vomiting, abdominal pain Skin: reports: rash - Medication Medications: Active Medications Generic Name Dose Route Start Last Admin Trade Name Freq PRN Reason Stop Dose Admin Acetaminophen 1,000 mg 03/15/20 09:30 03/17/20 11:41 Tylenol PO 1,000 mg Q6H PRN Administration Mild Pain (1-3) Amoxicillin/Clavulanate Potassium 500 mg 03/17/20 21:00 03/17/20 21:51 Augmentin PO 500 mg Q12HR DAVID Administration Aspirin 325 mg 03/17/20 09:00 03/17/20 09:09 Ecotrin PO 325 mg DAILY DAVID Administration Atorvastatin Calcium 40 mg 03/16/20 21:00 03/17/20 21:51 Lipitor PO 40 mg HS DAVID Administration Carvedilol 6.25 mg 03/17/20 08:00 03/17/20 16:15 Coreg PO 6.25 mg BID-WM DAVID Administration Duloxetine HCl 60 mg 03/16/20 21:00 03/17/20 21:51 Cymbalta PO 60 mg BID DAVID Administration Enoxaparin Sodium 40 mg 03/17/20 21:00 03/17/20 21:53 Lovenox SC 03/19/20 21:01 40 mg 2100 DAVID Administration Famotidine 20 mg 03/17/20 09:00 03/17/20 09:10 Pepcid PO 20 mg 0900 DAVID Administration Fenofibrate 145 mg 03/17/20 09:00 03/17/20 09:10 Tricor PO 145 mg DAILY DAVID Administration Fish Oil 1,000 mg 03/17/20 09:00 03/17/20 09:10 Fish Oil PO 1,000 mg DAILY DAVID Administration Gabapentin 600 mg 03/16/20 15:00 03/17/20 21:54 Neurontin PO 600 mg TID DAVID Administration Milrinone Lactate/Dextrose 20 100 mls @ 8.35 mls/hr 03/16/20 19:15 03/18/20 06:32 mg/ Device IVPB 100 mls INF DAVID Administration Protocol 0.375 MCG/KG/MIN Insulin Human Lispro 0 units 03/15/20 09:30 03/18/20 06:41 Humalog SC 2 unit .MILD SLIDING SCALE PRN Administration Mild Correctional Scale Insulin Human Lispro 0 units 03/15/20 09:30 03/17/20 21:57 Humalog SC 3 unit .BEDTIME SLIDING SC PRN Administration Bedtime Correctional Scale Multivitamins 1 tab 03/17/20 09:00 03/17/20 09:10 Theragran PO 1 tab DAILY DAVID Administration Sodium Chloride 10 ml 03/15/20 21:00 03/17/20 21:54 Flush - Normal Saline IVF 10 ml Q12HR DAVID Administration Tamsulosin HCl 0.4 mg 03/17/20 09:00 03/17/20 09:10 Flomax PO 0.4 mg DAILY DAVID Administration Tramadol HCl 100 mg 03/17/20 21:00 03/17/20 21:54 Ultram PO 100 mg HS DAVID Administration - Exam General Appearance: NAD, awake alert ENT: moist mucosa Heart: RRR, no murmur, no gallops, no rubs Respiratory: CTAB, no wheezes, no rales, no ronchi Gastrointestinal: soft, non-tender, non-distended, normal bowel sounds Skin - other findings: left ulnar hand with milky blister, no surrounding redness, no current drai Psychiatric: normal affect, normal behavior, A&O x 3 Hosp A/P (1) Acute on chronic systolic (congestive) heart failure Code(s): I50.23 - ACUTE ON CHRONIC SYSTOLIC (CONGESTIVE) HEART FAILURE Status : Acute Plan: EF 15-20% (2) Ischemic cardiomyopathy Code(s): I25.5 - ISCHEMIC CARDIOMYOPATHY Status: Chronic (3) CKD (chronic kidney disease), stage III Code(s): N18.3 - CHRONIC KIDNEY DISEASE, STAGE 3 (MODERATE) Status: Chronic (4) DM II (diabetes mellitus, type II), controlled Code(s): E11.9 - TYPE 2 DIABETES MELLITUS WITHOUT COMPLICATIONS Status: Chronic (5) Tobacco abuse Code(s): Z72.0 - TOBACCO USE Status: Chronic (6) Normocytic anemia Code(s): D64.9 - ANEMIA, UNSPECIFIED Status: Chronic - Plan continue antibiotics, PT/OT, social services specialist, out of bed/ambulate, DVT proph w/ SCDs Excellent diuresis, lasix discontinued Continue Milrinone gtt Coreg/ASA, consider Entresto if BP allows, JOSELITO-I held for now Tobacco cessation resources Resumed home meds Plan for cath on Friday Wound care consult and bactroban for hand wound AM lab: BMP, H/H
[2020-03-18] MEDS ORDERED: Non-Formulary Item 1 EACH (Cyanocobalamin (Vitamin B-12) [Vitamin B12] 500 MCG) PO SCH (09:00)
[2020-03-18] MEDS ORDERED: Bumetanide 1 MG TAB PO SCH (09:00)
[2020-03-18] MEDS ORDERED: Aspirin Chewable 81 MG TAB PO SCH (09:00)
--- NOTE | 2020-03-18 09:22 | EKG ---
Test Reason : Blood Pressure : / mmHG Vent. Rate : 114 BPM Atrial Rate : 114 BPM P-R Int : 174 ms QRS Dur : 086 ms QT Int : 344 ms P-R-T Axes : 068 221 078 degrees QTc Int : 474 ms Sinus tachycardia with Fusion complexes Left atrial enlargement Right ventricular hypertrophy with repolarization abnormality Anterolateral infarct , age undetermined Abnormal ECG Confirmed by MARIVEL ORTIZ ([id number]), copy editor LONNY DEMARCO ([id number]) on 03/18/2020 9:21:54 AM Referred By: Confirmed By:MARIVEL ORTIZ
--- NOTE | 2020-03-18 10:51 | PRG ---
DATE OF SERVICE: 03/18/2020 This is an advanced heart failure consulting service daily progress note. SUBJECTIVE: Mr. Pink had a good day in terms of cardiac perspective. He says he is breathing easier, is able to walk well, and he is able to sleep nearly flat. He was able to sleep comfortably. However, he complains of tooth pain periodically that is where he had a bad tooth before. There is no complaint of palpitation or syncope. He also expressed some concern of not getting enough fluid due to that he is on prostate medication. This is a relative information to him that he needs to continue with the fluid restriction. He understands that. REVIEW OF SYSTEMS: GENERAL: There is no fever, chills, or productive cough. HEENT: There is no change in seeing, hearing, or swallowing, but see HPI for the jaw and teeth pain. PULMONARY: See HPI. CARDIOVASCULAR: Please see HPI. GI: There is no problem. : He has continued to urinate well. MUSCULOSKELETAL: He does not complain of right shoulder pain anymore. NEUROLOGIC: There are no new focal deficits or weakness. He does have chronic left-sided weakness and contractures. INTEGUMENT: There is no skin breakdown. MEDICATIONS: His current cardiac medications include aspirin 325 mg daily, atorvastatin 40 mg q.h.s., Bumex 1 mg daily in the morning, carvedilol 6.25 mg b.i.d., fenofibrate 145 mg daily, fish oil 1 g daily, and milrinone at 0.375 mcg/kg/minute daily. He also has tamsulosin at 0.4 mg daily, this is Flomax. Even if it not a cardiac, it does have anti-alpha effect to decrease his blood pressure. PHYSICAL EXAMINATION: VITAL SIGNS: Telemetry was reviewed. He is in sinus rhythm, sometimes sinus tachycardia. He did have one 4-beat run of NSVT, but there is no more since then. The current vitals are heart rate about 94, blood pressure 116/82. GENERAL: He is alert, conversational, resting comfortably in bed at about 20 degrees of incline, breathing easily on room air. HEENT: Shows EOMI. Oropharynx shows bad teeth. There is potential abscessing looking area on the upper jaw. NECK: JVP is about 10 cm with a positive hepatojugular reflux. PULMONARY: Good air movement bilaterally. There are no rales. CARDIAC: Regular rate and rhythm with S1/S2, S4 gallop, and 2/6 holosystolic murmur at the apex with radiation to the left axilla. ABDOMEN: Soft, nontender, is slightly distended. Positive bowel sounds. EXTREMITIES: His lower extremities are without edema. Positive dorsalis pedis pulses bilaterally. LABORATORY VALUES: Sodium 134, potassium 4.2, bicarbonate 19, BUN of 32, creatinine 1.41. This is a decrease since yesterday. His BNP is now 222. This is a dramatic decrease. His admission BNP was 1321. A combination of milrinone and carvedilol has decreased his BNP down to 222 today. ASSESSMENT: 54-year-old gentleman resides in [place] [employer] stage C and [place] Heart [employer] class IIIB heart failure with reduced ejection fraction. The underlying cause is unclear at this point. It could be a predominant ischemic cause. His latest decompensation could be due to a myocardial infarction that occurred on February 28. Upcoming catheterization will clarify this. As mentioned earlier, if there is intervenable lesion, then we will need to intervene and follow him for 3 months to see if he improves. If there is no intervenable lesion, then he will need to be referred to a center that can do advanced heart failure therapy such as left ventricular assist device and with potential bridge to transplant. This was discussed yesterday. The patient strongly desired to be transferred to a center in [place], [place]. He is currently mildly volume overloaded. His sodium is going down. Thus, we will need to increase his diuresis and also increase milrinone slightly. Please see the following for recommendations: RECOMMENDATIONS: 1. Increase frequency of Bumex to Bumex 1 mg p.o. b.i.d. 2. Increase milrinone from 0.375 mcg/kg/minute to 0.425 mcg/kg/minute. 3. Please consider adding right heart catheterization in addition to the coronary angiogram. This will define his pulmonary pressures and cardiac output, and that will help to qualify him for transfer to a different center. It has been a pleasure taking care of Mr. Bessy Pink. Job ID: [id number] [facility]
[2020-03-18] MEDS: Cyanocobalamin (Vitamin B-12) 1,000 MCG TAB PO SCH (10:54)
[2020-03-18] MEDS: Amoxicillin/Potassium Clav 500 MG TAB PO SCH ×2 (12:02→22:45)
[2020-03-18] MEDS: traMADol HCl 50 MG TAB PO PRN (13:32)
[2020-03-18 15:30] VITALS: BMI 22.5
[2020-03-18] MEDS: Mupirocin 2% Ointment 22 GM Tube TOP SCH ×2 (16:17→22:46)
[2020-03-18] MEDS: Albumin 25% 25 GM/100 ML BOT IVPB SCH (18:24)
[2020-03-18] MEDS: traMADol HCl 50 MG TAB PO SCH (22:44)
[2020-03-18] MEDS: Atorvastatin Calcium 40 MG TAB PO SCH (22:45)
[2020-03-18] MEDS: Enoxaparin Sodium 40 MG/0.4 ML SYRINGE SC SCH (22:45)
[2020-03-18] MEDS: Bumetanide 1 MG TAB PO SCH (22:45)
[2020-03-19] MEDS: Albumin 25% 25 GM/100 ML BOT IVPB SCH ×2 (05:20→16:16)
[2020-03-19 05:39] LABS: #Basophils 0.1 thou/uL (0.0-0.2); #Eosinphils 0.2 thou/uL (0.0-0.7); #Lymphocytes 1.9 thou/uL (1.20-3.40); #Monocytes 0.4 thou/uL (0.11-0.59); #Neutrophils 2.4 thou/uL (1.40-6.50); %Basophils 1.8 % (0.0-1.0); %Eosinophils 4.4 % (0.0-10.0); %Lymphocytes 37.6 % (21.0-51.0); %Monocytes 8.5 % (0.0-10.0); %Neutrophils 47.8 % (42.0-75.0); Hemoglobin 10.5 g/dL (14.0-18.0); Mean Corpuscular HGB CONC 31.5 g/dL (32.0-36.0); Mean Corpuscular Volume 76.2 fL (78.0-98.0); Mean Platelet Volume 9.3 fL (7.4-10.4); Platelet Count 325 thou/uL (130-400); RBC Distribution Width 16.2 % (11.5-14.5); Red Blood Cell (RBC) Count 4.35 mill/uL (4.70-6.10); White Blood Cell (WBC) Count 5.1 thou/uL (4.8-10.8)
[2020-03-19] MEDS: traMADol HCl 50 MG TAB PO PRN ×2 (05:40→12:04)
--- NOTE | 2020-03-19 08:18 | PDOC.HOSPP ---
- Subjective Encounter Date: 03/19/20 Encounter Time: 10:55 Subjective: Patient reports sore on hand improving, wound care just dressed it. No more redness. KINSEY continues to improve. Able to lay flat without SOB so should be able to get cath tomorrow. - Objective Vital Signs & Weight: Vital Signs (12 hours) Temp Pulse Resp BP Pulse Ox 03/19/20 07:15 97.5 F L 105 H 16 122/66 98 03/19/20 03:31 97.7 F 101 H 18 104/62 97 Weight Admit Weight 161 lb Weight 162 lb 11.2 oz I&O: 03/18/20 03/19/20 03/20/20 06:59 06:59 06:59 Intake Total 350 1650 Output Total 3850 2650 Balance -3500 -1000 Result Diagrams: 03/19/20 04:56 03/19/20 10:24 Additional Labs: Accuchecks 03/19/20 03/18/20 03/18/20 05:45 20:16 17:07 POC Glucose 187 H 263 H 207 H 03/18/20 10:46 POC Glucose 226 H Hospitalist ROS - Review of Systems Constitutional: denies: fever, chills Respiratory: reports: SOB with excertion. denies: cough Cardiovascular: denies: chest pain, palpitations, edema Gastrointestinal: denies: nausea, vomiting, abdominal pain - Medication Medications: Active Medications Generic Name Dose Route Start Last Admin Trade Name Freq PRN Reason Stop Dose Admin Acetaminophen 1,000 mg 03/15/20 09:30 03/18/20 08:18 Tylenol PO 1,000 mg Q6H PRN Administration Mild Pain (1-3) Albumin Human 25 gm 03/18/20 17:00 03/19/20 05:20 Albumin 25% IVPB 03/21/20 05:01 25 gm 0500,1700 DAVID Administration Amoxicillin/Clavulanate Potassium 500 mg 03/17/20 21:00 03/18/20 22:45 Augmentin PO 500 mg Q12HR DAVID Administration Aspirin 325 mg 03/17/20 09:00 03/18/20 08:19 Ecotrin PO 325 mg DAILY DAVID Administration Atorvastatin Calcium 40 mg 03/18/20 21:00 03/18/20 22:45 Lipitor PO 40 mg HS DAVID Administration Bumetanide 1 mg 03/18/20 21:00 03/18/20 22:45 Bumex PO 1 mg BID DAVID Administration Carvedilol 6.25 mg 03/17/20 08:00 03/18/20 18:24 Coreg PO 6.25 mg BID-WM DAVID Administration Cyanocobalamin 500 mcg 03/18/20 09:00 03/18/20 10:54 Vitamin B-12 PO 500 mcg DAILY DAVID Administration Duloxetine HCl 60 mg 03/16/20 21:00 03/18/20 22:45 Cymbalta PO 60 mg BID DAVID Administration Enoxaparin Sodium 40 mg 03/17/20 21:00 03/18/20 22:45 Lovenox SC 03/19/20 21:01 40 mg 2100 DAVID Administration Famotidine 20 mg 03/17/20 09:00 03/18/20 08:19 Pepcid PO 20 mg 0900 DAVID Administration Fenofibrate 145 mg 03/17/20 09:00 03/18/20 08:18 Tricor PO 145 mg DAILY DAVID Administration Fish Oil 1,000 mg 03/17/20 09:00 03/18/20 08:18 Fish Oil PO 1,000 mg DAILY DAVID Administration Gabapentin 600 mg 03/16/20 15:00 03/18/20 22:43 Neurontin PO 600 mg TID DAVID Administration Milrinone Lactate/Dextrose 20 100 mls @ 9.47 mls/hr 03/16/20 19:15 03/18/20 06:32 mg/ Device IVPB 100 mls INF DAVID Administration Protocol 0.425 MCG/KG/MIN Insulin Human Lispro 0 units 03/15/20 09:30 03/18/20 18:36 Humalog SC 3 unit .MILD SLIDING SCALE PRN Administration Mild Correctional Scale Insulin Human Lispro 0 units 03/15/20 09:30 03/17/20 21:57 Humalog SC 3 unit .BEDTIME SLIDING SC PRN Administration Bedtime Correctional Scale Multivitamins 1 tab 03/17/20 09:00 03/18/20 08:18 Theragran PO 1 tab DAILY DAVID Administration Mupirocin 0 gm 03/18/20 15:00 03/18/20 22:46 Bactroban 2% Ointment TOP 1 applic TID DAVID Administration Pantoprazole Sodium 40 mg 03/18/20 09:00 03/18/20 10:54 Protonix PO 40 mg DAILY DAVID Administration Sodium Chloride 10 ml 03/15/20 21:00 03/18/20 22:46 Flush - Normal Saline IVF 10 ml Q12HR DAVID Administration Tramadol HCl 100 mg 03/17/20 21:00 03/18/20 22:44 Ultram PO 100 mg HS DAVID Administration Tramadol HCl 50 mg 03/18/20 13:20 03/19/20 05:40 Ultram PO 50 mg Q6H PRN Administration Pain - Exam General Appearance: NAD, awake alert ENT - other findings: severly diseased, rotting teeth Heart: RRR, no murmur, no rubs Heart - other findings: does have an S4 audible at lower LSB Respiratory: no wheezes, no ronchi Respiratory - other findings: minimal rales in left base Gastrointestinal: soft, non-tender, non-distended, normal bowel sounds Psychiatric: normal affect, normal behavior, A&O x 3 Hosp A/P (1) Acute on chronic systolic (congestive) heart failure Code(s): I50.23 - ACUTE ON CHRONIC SYSTOLIC (CONGESTIVE) HEART FAILURE Status : Acute (2) Ischemic cardiomyopathy Code(s): I25.5 - ISCHEMIC CARDIOMYOPATHY Status: Chronic (3) CKD (chronic kidney disease), stage III Code(s): N18.3 - CHRONIC KIDNEY DISEASE, STAGE 3 (MODERATE) Status: Chronic (4) DM II (diabetes mellitus, type II), controlled Code(s): E11.9 - TYPE 2 DIABETES MELLITUS WITHOUT COMPLICATIONS Status: Chronic (5) Tobacco abuse Code(s): Z72.0 - TOBACCO USE Status: Chronic (6) Normocytic anemia Code(s): D64.9 - ANEMIA, UNSPECIFIED Status: Chronic - Plan continue antibiotics, 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
[2020-03-19] MEDS: Amoxicillin/Potassium Clav 500 MG TAB PO SCH ×2 (09:01→20:56)
[2020-03-19] MEDS: Carvedilol 6.25 MG TAB PO SCH ×2 (09:01→16:16)
[2020-03-19] MEDS: Aspirin 325 mg Enteric Coated Tablet PO SCH (09:02)
[2020-03-19] MEDS: Cyanocobalamin (Vitamin B-12) 1,000 MCG TAB PO SCH (09:02)
[2020-03-19] MEDS: Bumetanide 1 MG TAB PO SCH ×2 (09:02→21:04)
[2020-03-19] MEDS: DULoxetine 60 MG CAP PO SCH ×2 (09:03→20:57)
[2020-03-19] MEDS: Famotidine 20 MG TAB PO SCH (09:03)
[2020-03-19] MEDS: Multivit, Therapeutic 1 TAB PO SCH (09:06)
[2020-03-19] MEDS: Fish Oil 1,000 MG CAP PO SCH (09:06)
[2020-03-19] MEDS: Mupirocin 2% Ointment 22 GM Tube TOP SCH ×3 (09:06→20:58)
[2020-03-19] MEDS: Fenofibrate Nanocrystallized 145 MG TAB PO SCH (09:06)
[2020-03-19] MEDS: Gabapentin 300 MG CAP PO SCH ×3 (09:06→20:57)
[2020-03-19 11:02] LABS: Anion Gap 16 mmol/L (10-20); BUN (Urea Nitrogen) 26 mg/dL (8.4-25.7); Calc. Creatinine Clearance 50 mL/min (70-130); Calcium 9.7 mg/dL (7.8-10.44); Carbon Dioxide 24 mmol/L (22-29); Chloride 98 mmol/L (98-107); Estimated GFR-MDRD 41; Glucose 233 mg/dL (70-105); Magnesium 2.2 mg/dL (1.6-2.6); Potassium 4.3 mmol/L (3.5-5.1); Sodium 134 mmol/L (136-145)
[2020-03-19] MEDS: HumaLOG 300 UNITS/3 ML VIAL SC PRN ×2 (11:20→16:50)
--- NOTE | 2020-03-19 12:14 | PRG ---
DATE OF SERVICE: 03/19/2020 This is Advanced Heart Failure Cardiology Consulting Service. SUBJECTIVE: Mr. Pink had an excellent day. He said he was able to walk around the unit twice. He did not have any shortness of breath, was able to eat and lay down nearly flat to go to sleep. He denied palpitations, chest pain, or syncope. He also denied any fever or chills. REVIEW OF SYSTEMS: GENERAL: See HPI. HEENT: There is no change in hearing, vision, or swallowing. PULMONARY: See HPI. CARDIOVASCULAR: Please see HPI. GI: He is able to eat well. : He is able to urinate well. MUSCULOSKELETAL: There are no complaints of joint pains or muscle pains today. INTEGUMENT: He complains of slight skin blistering on his right hand. NEUROLOGIC: There are no new focal deficits or weaknesses. He has chronic weakness on the left side of the body. MEDICATIONS: His cardiac medications include, 1. Bumex 1 mg twice a day. 2. Carvedilol 6.25 mg twice a day. 3. Aspirin 325 mg daily. 4. Fish oil 1 g daily. 5. Atorvastatin at 40 mg at bedtime. 6. Milrinone at 0.425 mcg/kg/minute. 7. Fenofibrate 145 mg daily. PHYSICAL EXAMINATION: VITAL SIGNS: Telemetry was reviewed. He is in sinus rhythm, mostly near sinus tachycardia at a rate of about 100. He has 2 to 3 beats of PVCs, but they are scattered and very few, so currently, there is no sustained ventricular tachycardia or nonsustained ventricular tachycardia. His last set of vitals recorded are blood pressure 109/70. GENERAL: The patient is alert, conversational, resting comfortably in bed. He is able to maintain long sentences without being short of breath. HEENT: EOMI with oropharynx benign with moist mucosa. NECK: His JVP is about 10 cm with positive hepatojugular reflux. PULMONARY: With good air movement bilaterally; however, he has slight left basilar crackles. CARDIAC: Tachycardic. S1, S2, and S4 gallops heard. He has a 3/6 holosystolic murmur at the apex with radiation to left axilla. ABDOMEN: Soft, nontender, but it is distended, positive fluid wave, so this may be a fluid. EXTREMITIES: His lower extremities are without edema. He has dorsalis pedis pulses bilaterally. It is warm and well perfused. LABORATORY DATA: There was no chemistry this morning, so we cannot make a judgment on this. When we tested how the patient will breathe, we were able to lower the patient down to complete horizontal. He said he can breathe well without being short of breath lying horizontal. Therefore, he now is able to undergo cardiac catheterization tomorrow. We also then rechecked his blood pressure several times. Systolic blood pressure ranged between 95 and 100. At this point, it is probably a bit too low to titrate up carvedilol. ASSESSMENT: 54-year-old gentleman, resides in [place] [employer], probably stage C and [place] Heart Association class IIIB heart failure with reduced ejection fraction. The underlying cause yet to be determined. There is a good chance of being ischemic cardiomyopathy. However, combination of left and right heart catheterization tomorrow will clarify this. For now, he remains slightly volume overloaded. He seemed to be needing at least Milrinone 0.425 mcg/kg/minute. He may need even more. He did have a net negative of 1 L output with Bumex 1 mg twice a day, so this is sufficient for now. RECOMMENDATIONS: 1. Continue current cardiac regimen. 2. Please provide albumin 25 g IV q.12 hours for three days. This will help with diuresis and also maintain vascular volume through the procedure. 3. N.p.o. tonight and prep the patient for left and right heart catheterization tomorrow morning. 4. We will refer to [facility] first if there is non-intervenable lesion. The reason why is that he was seen by the [facility] in the past. Hopefully, they will take him back. It has been a pleasure taking care of Mr. Pink. If you have any questions, please give me a call. Job ID: [id number] [facility]
[2020-03-19] MEDS: Acetaminophen 500 MG TAB PO PRN (16:16)
[2020-03-19] MEDS: Milrinone Lactate/D5W 20 MG in Premix Bag 1 BAG IVPB SCH (16:25)
[2020-03-19] MEDS: Atorvastatin Calcium 40 MG TAB PO SCH (20:57)
[2020-03-19] MEDS: traMADol HCl 50 MG TAB PO SCH (20:57)
[2020-03-19] MEDS: Enoxaparin Sodium 40 MG/0.4 ML SYRINGE SC SCH (20:58)
[2020-03-20] MEDS: Milrinone Lactate/D5W 20 MG in Premix Bag 1 BAG IVPB SCH ×3 (02:52→22:31)
[2020-03-20 05:10] LABS: #Basophils 0.1 thou/uL (0.0-0.2); #Eosinphils 0.2 thou/uL (0.0-0.7); #Lymphocytes 2.7 thou/uL (1.20-3.40); #Monocytes 0.6 thou/uL (0.11-0.59); #Neutrophils 2.3 thou/uL (1.40-6.50); %Basophils 1.1 % (0.0-1.0); %Eosinophils 3.8 % (0.0-10.0); %Lymphocytes 46.1 % (21.0-51.0); %Monocytes 9.9 % (0.0-10.0); %Neutrophils 39.1 % (42.0-75.0); Hemoglobin 9.7 g/dL (14.0-18.0); Mean Corpuscular HGB CONC 31.7 g/dL (32.0-36.0); Mean Corpuscular Hemoglobin 24.2 pg (27.0-31.0); Mean Corpuscular Volume 76.5 fL (78.0-98.0); Mean Platelet Volume 9.2 fL (7.4-10.4); Platelet Count 292 thou/uL (130-400); RBC Distribution Width 16.3 % (11.5-14.5); White Blood Cell (WBC) Count 5.8 thou/uL (4.8-10.8)
[2020-03-20 05:35] LABS: Anion Gap 14 mmol/L (10-20); BUN (Urea Nitrogen) 28 mg/dL (8.4-25.7); Calc. Creatinine Clearance 50 mL/min (70-130); Calcium 9.4 mg/dL (7.8-10.44); Carbon Dioxide 27 mmol/L (22-29); Chloride 98 mmol/L (98-107); Estimated GFR-MDRD 41; Glucose 144 mg/dL (70-105); Potassium 3.8 mmol/L (3.5-5.1); Sodium 135 mmol/L (136-145)
[2020-03-20] MEDS: Fenofibrate Nanocrystallized 145 MG TAB PO SCH (06:05)
[2020-03-20] MEDS: Mupirocin 2% Ointment 22 GM Tube TOP SCH ×3 (06:05→20:33)
[2020-03-20] MEDS: Aspirin 325 mg Enteric Coated Tablet PO SCH (06:06)
[2020-03-20] MEDS: Multivit, Therapeutic 1 TAB PO SCH (06:06)
[2020-03-20] MEDS: Famotidine 20 MG TAB PO SCH (06:06)
[2020-03-20] MEDS: Fish Oil 1,000 MG CAP PO SCH (06:06)
[2020-03-20] MEDS: Gabapentin 300 MG CAP PO SCH ×3 (06:07→20:34)
[2020-03-20] MEDS: DULoxetine 60 MG CAP PO SCH ×2 (06:07→20:36)
[2020-03-20] MEDS: Cyanocobalamin (Vitamin B-12) 1,000 MCG TAB PO SCH (06:07)
[2020-03-20] MEDS: Amoxicillin/Potassium Clav 500 MG TAB PO SCH ×2 (06:14→20:34)
[2020-03-20] MEDS: Bumetanide 1 MG TAB PO SCH (06:15)
[2020-03-20] MEDS: Carvedilol 6.25 MG TAB PO SCH ×2 (06:24→16:25)
[2020-03-20] MEDS ORDERED: Sodium Chloride 0.9% 1,000 ML IV SCH (06:45)
[2020-03-20] MEDS: Albumin 25% 25 GM/100 ML BOT IVPB SCH ×2 (06:52→18:01)
--- NOTE | 2020-03-20 06:59 | PDOC.HOSPP ---
- Subjective Encounter Date: 03/20/20 Encounter Time: 09:40 Subjective: Patient without complaint. No chest pain. No SOB. Ambulating in hallways on his drip. Per his report the cath has been bumped to tomorrow. - Objective Vital Signs & Weight: Vital Signs (12 hours) Temp Pulse Resp BP BP BP Pulse Ox 03/20/20 06:24 86/63 L 03/20/20 03:51 97.5 F L 97 16 118/77 92 L 03/20/20 00:18 95 03/19/20 23:55 98 101/71 03/19/20 19:46 98.6 F 95 16 102/60 95 03/19/20 19:45 96 Weight Admit Weight 161 lb Weight 162 lb 11.2 oz I&O: 03/18/20 03/19/20 03/20/20 06:59 06:59 06:59 Intake Total 350 1650 1654 Output Total 3850 2650 1175 Balance -3500 -1000 479 Result Diagrams: 03/20/20 04:49 03/20/20 04:49 Additional Labs: Accuchecks 03/19/20 03/19/20 03/19/20 20:21 16:52 11:09 POC Glucose 182 H 206 H 323 H Hospitalist ROS - Review of Systems Constitutional: denies: fever, chills Respiratory: denies: cough, shortness of breath Cardiovascular: denies: chest pain, palpitations, edema Gastrointestinal: denies: nausea, vomiting, abdominal pain - Medication Medications: Active Medications Generic Name Dose Route Start Last Admin Trade Name Freq PRN Reason Stop Dose Admin Acetaminophen 1,000 mg 03/15/20 09:30 03/19/20 16:16 Tylenol PO 1,000 mg Q6H PRN Administration Mild Pain (1-3) Amoxicillin/Clavulanate Potassium 500 mg 03/17/20 21:00 03/20/20 06:14 Augmentin PO 500 mg Q12HR DAVID Administration Aspirin 325 mg 03/17/20 09:00 03/20/20 06:06 Ecotrin PO 325 mg DAILY DAVID Administration Atorvastatin Calcium 40 mg 03/18/20 21:00 03/19/20 20:57 Lipitor PO 40 mg HS DAVID Administration Carvedilol 6.25 mg 03/17/20 08:00 03/20/20 06:24 Coreg PO Not Given BID-WM DAVID Cyanocobalamin 500 mcg 03/18/20 09:00 03/20/20 06:07 Vitamin B-12 PO 500 mcg DAILY DAVID Administration Duloxetine HCl 60 mg 03/16/20 21:00 03/20/20 06:07 Cymbalta PO 60 mg BID DAVID Administration Famotidine 20 mg 03/17/20 09:00 03/20/20 06:06 Pepcid PO 20 mg 0900 DAVID Administration Fenofibrate 145 mg 03/17/20 09:00 03/20/20 06:05 Tricor PO 145 mg DAILY DAVID Administration Fish Oil 1,000 mg 03/17/20 09:00 03/20/20 06:06 Fish Oil PO 1,000 mg DAILY DAVID Administration Gabapentin 600 mg 03/16/20 15:00 03/20/20 06:07 Neurontin PO 600 mg TID DAVID Administration Milrinone Lactate/Dextrose 20 100 mls @ 11.14 mls/hr 03/16/20 19:15 03/20/20 02:52 mg/ Device IVPB 100 mls INF DAVID Administration Protocol 0.5 MCG/KG/MIN Insulin Human Lispro 0 units 03/15/20 09:30 03/19/20 16:50 Humalog SC 3 unit .MILD SLIDING SCALE PRN Administration Mild Correctional Scale Insulin Human Lispro 0 units 03/15/20 09:30 03/17/20 21:57 Humalog SC 3 unit .BEDTIME SLIDING SC PRN Administration Bedtime Correctional Scale Multivitamins 1 tab 03/17/20 09:00 03/20/20 06:06 Theragran PO 1 tab DAILY DAVID Administration Mupirocin 0 gm 03/18/20 15:00 03/20/20 06:05 Bactroban 2% Ointment TOP 1 applic TID DAVID Administration Pantoprazole Sodium 40 mg 03/18/20 09:00 03/20/20 06:08 Protonix PO 40 mg DAILY DAVID Administration Sodium Chloride 10 ml 03/15/20 21:00 03/19/20 21:07 Flush - Normal Saline IVF Not Given Q12HR DAVID Tramadol HCl 100 mg 03/17/20 21:00 03/19/20 20:57 Ultram PO 100 mg HS DAVID Administration Tramadol HCl 50 mg 03/18/20 13:20 03/19/20 12:04 Ultram PO 50 mg Q6H PRN Administration Pain - Exam General Appearance: NAD, awake alert ENT: moist mucosa Heart: RRR, no murmur, no gallops, no rubs Respiratory: CTAB, no wheezes, no rales, no ronchi Gastrointestinal: soft, non-tender, non-distended, normal bowel sounds Psychiatric: normal affect, normal behavior, A&O x 3 Hosp A/P (1) Acute on chronic systolic (congestive) heart failure Code(s): I50.23 - ACUTE ON CHRONIC SYSTOLIC (CONGESTIVE) HEART FAILURE Status : Acute (2) Ischemic cardiomyopathy Code(s): I25.5 - ISCHEMIC CARDIOMYOPATHY Status: Chronic (3) CKD (chronic kidney disease), stage III Code(s): N18.3 - CHRONIC KIDNEY DISEASE, STAGE 3 (MODERATE) Status: Chronic (4) DM II (diabetes mellitus, type II), controlled Code(s): E11.9 - TYPE 2 DIABETES MELLITUS WITHOUT COMPLICATIONS Status: Chronic (5) Tobacco abuse Code(s): Z72.0 - TOBACCO USE Status: Chronic (6) Normocytic anemia Code(s): D64.9 - ANEMIA, UNSPECIFIED Status: Chronic - Plan continue antibiotics, 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
--- NOTE | 2020-03-20 08:02 | PRG ---
DATE OF SERVICE: 03/20/2020 SUBJECTIVE: Mr. Pink had a good day. He was able to walk at least 2 laps around the unit without any difficulty. He was able to sleep nearly flat without any difficulties. However, he has a slowed down trace of blood pressure. This morning, went into high 80s. His last blood pressure reading was 92/68. He is likely a bit dehydrated. REVIEW OF SYSTEMS: GENERAL: There is no fever or chills, productive cough. Feeling well. PULMONARY: There is no shortness of breath. Please see HPI. CARDIOVASCULAR: There is no chest pain, palpitations, or syncope. GI: He ate well, but then he was n.p.o. last night. : He is able to urinate well. He has been off Flomax. INTEGUMENT: There is no breakdown. MUSCULOSKELETAL: There is no complaint of joint pains. NEUROLOGIC: There is no new focal deficits or weaknesses. He has chronic left-sided weakness. MEDICATIONS: That have cardiac impact: 1. Aspirin 325 mg daily. 2. Atorvastatin 40 mg p.o. at bedtime. 3. Bumex currently at 1 mg b.i.d. 4. Carvedilol 6.25 mg b.i.d. 5. Milrinone currently at 0.425 mcg/kg/minute. 6. Nitroglycerin 0.4 mg sublingual every 5 minutes p.r.n. PHYSICAL EXAMINATION: VITAL SIGNS: His telemetry was reviewed. There was some PVC, but there was no concerning arrhythmia, remaining in sinus rhythm in the high 90s. The latest vitals are heart rate 94, blood pressure 92/68 while lying in a reclined. GENERAL: He is alert, conversational, feeling well. There are no symptoms. HEENT: Show EOMI. Oropharynx benign with moist mucosa. NECK: His JVP is about 8 cm with positive hepatojugular reflux. This is lowest ever. PULMONARY: Good air movement bilaterally and clear to auscultation bilaterally. This is the best lung sounds yet. CARDIAC: Regular rate and rhythm with 2/6 holosystolic murmur at the apex with radiation to left axilla. PMI is inferiorly and laterally displaced. ABDOMEN: Soft, nontender. Positive bowel sounds. EXTREMITIES: His lower extremities without edema with positive dorsalis pedis pulses bilaterally. LABORATORY VALUES: This morning; sodium 135, potassium 3.8, BUN 28, creatinine 1.72. ASSESSMENT: 54-year-old gentleman, resides in [place] [employer], likely to be stage C and [place] Heart Association class IIIB heart failure with reduced ejection fraction. The underlying cause is unknown. It is likely to be ischemic cardiomyopathy. He may have had a myocardial infarction on February 29, 2020. The combination of left and right heart catheterization this morning will determine both his coronary anatomy and his cardiac output along with pulmonary pressures. He is suffering from cardiorenal syndrome. Today, he is a little bit volume depleted. However, we will keep him on the dry side going into the greenskeeper laborer and we will give him fluids afterwards to clear his kidneys. We will temporize him. With holding Bumex and also ensure that he gets his albumin 25 g IV q.12 hours. RECOMMENDATIONS: 1. Hold Bumex for today. 2. Ensure the patient gets albumin 25 g IV q.12 hours, 1st dose now before catheterization lab. 3. Do type and screen stat. 4. Increase Milrinone to 0.5 mcg/kg/minute. He may need more cardiac output because he is getting effective diuresis. With sodium increasing, especially, he is currently ankit the volume, but BUN is going up that means that he needs more cardiac output. 5. Please give a normal saline at 50 mL/h for 6 hours after the catheterization procedure. Does still help to clear his kidneys after catheterization procedure. His catheterization results will determine the next step. If there is no intervenable lesions, we will request a transfer to a center that can do advanced heart failure therapy. If there is intervenable lesion, most likely, then he will be receiving a stent, and we will treat him medically without inotropic support for at least 3 months to see if heart gets better. It has been a pleasure taking care of Mr. Bessy Pink. Job ID: [id number] [facility]
[2020-03-20] MEDS: HumaLOG 300 UNITS/3 ML VIAL SC PRN ×2 (11:49→18:01)
[2020-03-20] MEDS: traMADol HCl 50 MG TAB PO PRN (11:53)
--- NOTE | 2020-03-20 14:20 | PDOC.CPN ---
- Subjective Date: 03/20/20 Time: 14:22 Interval history: The pt seen and examined. No overnight events. No cardiac complaints. He walked around nursing station x 2 today without any cardiac complaints. - Objective Allergies/Adverse Reactions: Allergies Allergy/AdvReac Type Severity Reaction Status Date / Time No Known Allergies Allergy Unverified 03/15/20 08:36 Visit Medications: Current Medications Acetaminophen (Tylenol) 1,000 mg PO Q6H PRN PRN Reason: Mild Pain (1-3) Last Admin: 03/19/20 16:16 Dose: 1,000 mg Albumin Human (Albumin 25%) 25 gm IVPB 0700,1900 [facility] Stop: 03/21/20 07:01 Last Admin: 03/20/20 06:52 Dose: 25 gm Amoxicillin/Clavulanate Potassium (Augmentin) 500 mg PO Q12HR [facility] Last Admin: 03/20/20 06:14 Dose: 500 mg Aspirin (Ecotrin) 325 mg PO DAILY [facility] Last Admin: 03/20/20 06:06 Dose: 325 mg Atorvastatin Calcium (Lipitor) 40 mg PO HS [facility] Last Admin: 03/19/20 20:57 Dose: 40 mg Benzonatate (Tessalon) 100 mg PO Q6H PRN PRN Reason: Cough Bumetanide (Bumex) 1 mg PO BID [facility] Carvedilol (Coreg) 6.25 mg PO BID-[facility] Last Admin: 03/20/20 06:24 Dose: Not Given Cyanocobalamin (Vitamin B-12) 500 mcg PO DAILY [facility] Last Admin: 03/20/20 06:07 Dose: 500 mcg Dextrose/Water (Dextrose 50%) 25 gm SLOW IVP PRN PRN PRN Reason: Hypoglycemia Duloxetine HCl (Cymbalta) 60 mg PO BID [facility] Last Admin: 03/20/20 06:07 Dose: 60 mg Famotidine (Pepcid) 20 mg PO 0900 [facility] Last Admin: 03/20/20 06:06 Dose: 20 mg Fenofibrate (Tricor) 145 mg PO DAILY [facility] Last Admin: 03/20/20 06:05 Dose: 145 mg Fish Oil (Fish Oil) 1,000 mg PO DAILY [facility] Last Admin: 03/20/20 06:06 Dose: 1,000 mg Gabapentin (Neurontin) 600 mg PO TID [facility] Last Admin: 03/20/20 06:07 Dose: 600 mg Glucagon (Glucagon) 1 mg IM PRN PRN PRN Reason: Hypoglycemia Hydralazine HCl (Apresoline) 10 mg SLOW IVP Q4H PRN PRN Reason: SBP > 180 and HR < 70 Dextrose/Water (D5w) 1,000 mls @ 0 mls/hr IV .Q0M PRN PRN Reason: Hypoglycemia Milrinone Lactate/Dextrose 20 (mg/ Device) 100 mls @ 11.14 mls/hr IVPB INF [facility] ; Protocol Last Admin: 03/20/20 12:37 Dose: 100 mls Sodium Chloride (Normal Saline 0.9%) 1,000 mls @ 50 mls/hr IV .Q20H [facility] Stop: 03/21/20 02:44 Last Admin: 03/20/20 09:06 Dose: Not Given Insulin Human Lispro (Humalog) 0 units SC .MILD SLIDING SCALE PRN PRN Reason: Mild Correctional Scale Last Admin: 03/20/20 11:49 Dose: 4 unit Insulin Human Lispro (Humalog) 0 units SC .BEDTIME SLIDING SC PRN PRN Reason: Bedtime Correctional Scale Last Admin: 03/17/20 21:57 Dose: 3 unit Multivitamins (Theragran) 1 tab PO DAILY [facility] Last Admin: 03/20/20 06:06 Dose: 1 tab Mupirocin (Bactroban 2% Ointment) 0 gm TOP TID [facility] Last Admin: 03/20/20 06:05 Dose: 1 applic Nitroglycerin (Nitrostat) 0.4 mg SL Q5MIN PRN PRN Reason: Chest Pain Ondansetron HCl (Zofran Odt) 4 mg PO Q6H PRN PRN Reason: Nausea/Vomiting Ondansetron HCl (Zofran) 4 mg IVP Q6H PRN PRN Reason: Nausea/Vomiting Pantoprazole Sodium (Protonix) 40 mg PO DAILY [facility] Last Admin: 03/20/20 06:08 Dose: 40 mg Sodium Chloride (Flush - Normal Saline) 10 ml IVF Q12HR [facility] Last Admin: 03/20/20 09:06 Dose: Not Given Sodium Chloride (Flush - Normal Saline) 10 ml IVF PRN PRN PRN Reason: Saline Flush Tramadol HCl (Ultram) 100 mg PO HS [facility] Last Admin: 03/19/20 20:57 Dose: 100 mg Tramadol HCl (Ultram) 50 mg PO Q6H PRN PRN Reason: Pain Last Admin: 03/20/20 11:53 Dose: 50 mg Vital Signs & Weight: Vital Signs Temp Pulse Pulse Pulse Resp BP BP 03/20/20 13:40 105 H 104 H 106/62 03/20/20 11:43 97.7 F 95 17 03/20/20 07:48 96.1 F L 97 19 03/20/20 06:24 86/63 L 03/20/20 03:51 97.5 F L 97 16 BP BP BP Pulse Ox 03/20/20 13:40 103/64 03/20/20 11:43 115/70 95 03/20/20 07:48 114/58 L 98 03/20/20 06:24 03/20/20 03:51 118/77 92 L Admit Weight 161 lb Weight 164 lb 1.6 oz - Physical Exam General: alert & oriented x3 HEENT: mucus membranes moist Neck: supple neck Cardiac: regular rate and rhythm, S1/S2 Lungs: clear to auscultation, decreased breath sounds Neuro: cranial nerve 2-12 intact Musculoskeletal: normal range of motion - Labs Result Diagrams: 03/20/20 04:49 03/20/20 04:49 Troponin/CKMB CK-MB (CK-2) 2.0 ng/mL (0-6.6) 03/15/20 05:40 Troponin I 0.030 ng/mL (< 0.028) H 03/16/20 17:43 - Telemetry Sinus rhythms and dysrhythmias: sinus tachycardia - Assessment/Plan Assessment/Plan: 1. Acute on Chronic systolic HF with EF 15-20% - stable with Bumax 1mg BID, Coreg 6.25mg BID, and Milrinone 0.5mcg/kg/min; Plan for Cath on Friday; Appreciate Dr Sampson's insight; 2. Ischemic CMY with hx of [facility] AICD in 2013 3. CAD with hx of stent x1 in LAD in 2013 - Plan for [facility] on Friday; On Coreg, ASA, and Lipitor 4. HTN - mildly hypotensive with current medication; cont. to monitor 5. HLD - on statin 6. DM type 2 7. Chronic pain syndrome - the pt is willing to stop marijuana 8. Mod-sever MR - cont. to monitor 9. Tobacco and ilicit drug abuse - the pt is willing to start smoking and ilicit drug cessation MAR reviewed * Echo on 03/15/2020 with EF 15-20%, mild LAE, mod-severe MR, mild-mod TR, and mild [place] Pt. seen and eval. by me. I agree with the A/P by the LEARNING STRATEGIST. Due to the increased creat. and hypotension which likely indicated he is on the dry side, I will postpone the cardiac cath until tomorrow. Chest clear, RRR. gjm
[2020-03-20] MEDS: traMADol HCl 50 MG TAB PO SCH (20:34)
[2020-03-20] MEDS: Atorvastatin Calcium 40 MG TAB PO SCH (20:36)
[2020-03-21] MEDS: traMADol HCl 50 MG TAB PO PRN ×2 (00:04→16:04)
[2020-03-21 04:39] LABS: #Basophils 0.1 thou/uL (0.0-0.2); #Eosinphils 0.2 thou/uL (0.0-0.7); #Lymphocytes 2.1 thou/uL (1.20-3.40); #Monocytes 0.5 thou/uL (0.11-0.59); #Neutrophils 3.2 thou/uL (1.40-6.50); %Basophils 0.9 % (0.0-1.0); %Eosinophils 2.9 % (0.0-10.0); %Lymphocytes 34.2 % (21.0-51.0); %Monocytes 8.5 % (0.0-10.0); %Neutrophils 53.5 % (42.0-75.0); Hemoglobin 9.8 g/dL (14.0-18.0); Mean Corpuscular HGB CONC 31.6 g/dL (32.0-36.0); Mean Corpuscular Hemoglobin 24.3 pg (27.0-31.0); Mean Corpuscular Volume 76.7 fL (78.0-98.0); Mean Platelet Volume 9.2 fL (7.4-10.4); Platelet Count 286 thou/uL (130-400); RBC Distribution Width 16.7 % (11.5-14.5); Red Blood Cell (RBC) Count 4.02 mill/uL (4.70-6.10)
[2020-03-21 05:01] LABS: Anion Gap 15 mmol/L (10-20); BUN (Urea Nitrogen) 29 mg/dL (8.4-25.7); Calc. Creatinine Clearance 55 mL/min (70-130); Calcium 9.9 mg/dL (7.8-10.44); Carbon Dioxide 28 mmol/L (22-29); Chloride 98 mmol/L (98-107); Estimated GFR-MDRD 46; Glucose 147 mg/dL (70-105); Potassium 3.8 mmol/L (3.5-5.1); Sodium 137 mmol/L (136-145)
[2020-03-21] MEDS: Albumin 25% 25 GM/100 ML BOT IVPB SCH (06:04)
[2020-03-21] MEDS: Gabapentin 300 MG CAP PO SCH ×3 (06:05→20:07)
[2020-03-21] MEDS: Amoxicillin/Potassium Clav 500 MG TAB PO SCH ×2 (06:05→20:06)
[2020-03-21] MEDS: Mupirocin 2% Ointment 22 GM Tube TOP SCH ×3 (06:05→20:07)
[2020-03-21] MEDS: Carvedilol 6.25 MG TAB PO SCH ×2 (06:06→16:02)
[2020-03-21] MEDS: Fenofibrate Nanocrystallized 145 MG TAB PO SCH (06:06)
[2020-03-21] MEDS: Famotidine 20 MG TAB PO SCH (06:07)
[2020-03-21] MEDS: Bumetanide 1 MG TAB PO SCH ×2 (06:07→20:08)
[2020-03-21] MEDS: Aspirin 325 mg Enteric Coated Tablet PO SCH (06:07)
[2020-03-21] MEDS: Multivit, Therapeutic 1 TAB PO SCH (06:08)
[2020-03-21] MEDS: Fish Oil 1,000 MG CAP PO SCH (06:08)
[2020-03-21] MEDS: Cyanocobalamin (Vitamin B-12) 1,000 MCG TAB PO SCH (06:08)
[2020-03-21] MEDS: DULoxetine 60 MG CAP PO SCH ×2 (06:09→20:08)
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
--- NOTE | 2020-03-21 07:37 | PDOC.HOSPP ---
- Subjective Encounter Date: 03/21/20 Encounter Time: 12:00 Subjective: Just back from cath, no stenting or other interventions recommended. No complaints. - Objective Vital Signs & Weight: Vital Signs (12 hours) Temp Pulse Resp BP BP Pulse Ox 03/21/20 06:06 116/89 03/21/20 04:00 97.7 F 94 18 100/60 95 03/21/20 00:30 97 03/20/20 23:28 69 126/61 03/20/20 20:00 97.5 F L 96 18 137/60 97 Weight Admit Weight 161 lb Weight 164 lb 1.6 oz I&O: 03/20/20 03/21/20 03/22/20 06:59 06:59 06:59 Intake Total 2374 1332 Output Total 2475 1280 Balance -101 52 Result Diagrams: 03/21/20 03:50 03/21/20 03:50 Additional Labs: Accuchecks 03/20/20 03/20/20 03/20/20 20:39 17:16 10:44 POC Glucose 191 H 409 H 273 H 03/20/20 05:31 POC Glucose 178 H Hospitalist ROS - Review of Systems Constitutional: denies: fever, chills Respiratory: denies: cough, shortness of breath Cardiovascular: denies: chest pain, palpitations Gastrointestinal: denies: nausea, vomiting, abdominal pain - Medication Medications: Active Medications Generic Name Dose Route Start Last Admin Trade Name Freq PRN Reason Stop Dose Admin Acetaminophen 1,000 mg 03/15/20 09:30 03/19/20 16:16 Tylenol PO 1,000 mg Q6H PRN Administration Mild Pain (1-3) Amoxicillin/Clavulanate Potassium 500 mg 03/17/20 21:00 03/21/20 06:05 Augmentin PO 500 mg Q12HR [facility]ID Administration Aspirin 325 mg 03/17/20 09:00 03/21/20 06:07 Ecotrin PO 325 mg DAILY [facility]ID Administration Atorvastatin Calcium 40 mg 03/18/20 21:00 03/20/20 20:36 Lipitor PO 40 mg HS [facility]ID Administration Bumetanide 1 mg 03/21/20 09:00 03/21/20 06:07 Bumex PO 1 mg BID [facility]ID Administration Carvedilol 6.25 mg 03/17/20 08:00 03/21/20 06:06 Coreg PO 6.25 mg BID-WM [facility]ID Administration Cyanocobalamin 500 mcg 03/18/20 09:00 03/21/20 06:08 Vitamin B-12 PO 500 mcg DAILY [facility] Administration Duloxetine HCl 60 mg 03/16/20 21:00 03/21/20 06:09 Cymbalta PO 60 mg BID [facility] Administration Famotidine 20 mg 03/17/20 09:00 03/21/20 06:07 Pepcid PO 20 mg 0900 [facility]ID Administration Fenofibrate 145 mg 03/17/20 09:00 03/21/20 06:06 Tricor PO 145 mg DAILY [facility] Administration Fish Oil 1,000 mg 03/17/20 09:00 03/21/20 06:08 Fish Oil PO 1,000 mg DAILY [facility] Administration Gabapentin 600 mg 03/16/20 15:00 03/21/20 06:05 Neurontin PO 600 mg TID [facility] Administration Milrinone Lactate/Dextrose 20 100 mls @ 11.14 mls/hr 03/16/20 19:15 03/20/20 22:31 mg/ Device IVPB 100 mls INF [facility] Administration Protocol 0.5 MCG/KG/MIN Insulin Human Lispro 0 units 03/15/20 09:30 03/20/20 18:01 Humalog SC 6 unit .MILD SLIDING SCALE PRN Administration Mild Correctional Scale Insulin Human Lispro 0 units 03/15/20 09:30 03/17/20 21:57 Humalog SC 3 unit .BEDTIME SLIDING SC PRN Administration Bedtime Correctional Scale Multivitamins 1 tab 03/17/20 09:00 03/21/20 06:08 Theragran PO 1 tab DAILY [facility] Administration Mupirocin 0 gm 03/18/20 15:00 03/21/20 06:05 Bactroban 2% Ointment TOP 1 applic TID [facility] Administration Pantoprazole Sodium 40 mg 03/18/20 09:00 03/21/20 06:06 Protonix PO 40 mg DAILY [facility] Administration Sodium Chloride 10 ml 03/15/20 21:00 03/20/20 20:36 Flush - Normal Saline IVF Not Given Q12HR [facility] Tramadol HCl 100 mg 03/17/20 21:00 03/20/20 20:34 Ultram PO 100 mg HS [facility] Administration Tramadol HCl 50 mg 03/18/20 13:20 03/21/20 00:04 Ultram PO 50 mg Q6H PRN Administration Pain - Exam General Appearance: NAD, awake alert ENT: moist mucosa Heart: RRR, no murmur, no gallops, no rubs Respiratory: CTAB, no wheezes, no rales, no ronchi Gastrointestinal: soft, non-tender, non-distended, normal bowel sounds Psychiatric: normal affect, normal behavior, A&O x 3 Hosp A/P (1) Acute on chronic systolic (congestive) heart failure Code(s): I50.23 - ACUTE ON CHRONIC SYSTOLIC (CONGESTIVE) HEART FAILURE Status : Acute (2) Ischemic cardiomyopathy Code(s): I25.5 - ISCHEMIC CARDIOMYOPATHY Status: Chronic (3) CKD (chronic kidney disease), stage III Code(s): N18.3 - CHRONIC KIDNEY DISEASE, STAGE 3 (MODERATE) Status: Chronic (4) DM II (diabetes mellitus, type II), controlled Code(s): E11.9 - TYPE 2 DIABETES MELLITUS WITHOUT COMPLICATIONS Status: Chronic (5) Tobacco abuse Code(s): Z72.0 - TOBACCO USE Status: Chronic (6) Normocytic anemia Code(s): D64.9 - ANEMIA, UNSPECIFIED Status: Chronic - Plan continue antibiotics, PT/OT, social work supervisor, out of bed/ambulate, DVT proph w/ SCDs Excellent diuresis, lasix discontinued, on Bumex BID with good urine output Continuing Milrinone gtt Coreg/ASA, cannot tolerate Entresto while on the Milrinone Tobacco cessation resources Resumed home meds Wound care consulted and bactroban for hand wound- improving No intervention during cath, will likely need f/u with heart transplant clinic Discharge/transfer as per Dr. Sampson's recommendations
[2020-03-21] MEDS ORDERED: Heparin 10,000 UNITS/1 ML VIAL ONE (08:06)
[2020-03-21] MEDS: Milrinone Lactate/D5W 20 MG in Premix Bag 1 BAG IVPB SCH ×2 (08:51→19:10)
[2020-03-21] MEDS ORDERED: Sodium Chloride 0.9% 1,000 ML IV SCH (09:00)
[2020-03-21] MEDS ORDERED: Iopamidol 370 76% 100 ML VIAL ONE (09:56)
[2020-03-21] MEDS ORDERED: Midazolam HCl 2 mg/2 ml Vial ONE (10:47)
[2020-03-21 11:39] LABS: Site FEM ARTERY; Site RA
[2020-03-21 11:40] LABS: Site RV
[2020-03-21 11:42] LABS: Site PA
[2020-03-21] MEDS ORDERED: Sodium Chloride 0.9% 200 ML IV PRN (12:24)
[2020-03-21] MEDS ORDERED: Nitroglycerin 0.4 MG TAB (25 Tab Bottle) SL PRN (12:24)
[2020-03-21] MEDS ORDERED: Acetaminophen/Codeine 30-300mg Tablet PO PRN ×2 (12:24)
[2020-03-21] MEDS ORDERED: Furosemide 40 MG/4 ML VIAL SLOW IVP PRN (18:42)
[2020-03-21] MEDS: traMADol HCl 50 MG TAB PO SCH (20:08)
[2020-03-21] MEDS: Atorvastatin Calcium 40 MG TAB PO SCH (20:09)
[2020-03-21] MEDS: HumaLOG 300 UNITS/3 ML VIAL SC PRN (21:46)
[2020-03-22] MEDS: Milrinone Lactate/D5W 20 MG in Premix Bag 1 BAG IVPB SCH (04:19)
--- NOTE | 2020-03-22 07:37 | PDOC.HOSPP ---
- Subjective Encounter Date: 03/22/20 Encounter Time: 10:30 Subjective: No SOB. Ambulating well on the drip. Good UOP. Awaiting transport to [facility] in [place]. - Objective Vital Signs & Weight: Vital Signs (12 hours) Temp Pulse Resp BP Pulse Ox 03/22/20 03:36 98.6 F 91 18 108/68 94 L 03/22/20 01:15 95 Weight Admit Weight 161 lb Weight 164 lb I&O: 03/21/20 03/22/20 03/23/20 06:59 06:59 06:59 Intake Total 1603 980 Output Total 2280 6450 Balance -909 -743 Result Diagrams: 03/22/20 07:38 03/22/20 07:38 Additional Labs: Accuchecks 03/22/20 03/21/20 03/21/20 05:51 20:43 16:39 POC Glucose 152 H 250 H 203 H 03/21/20 06:13 POC Glucose 150 H Hospitalist ROS - Review of Systems Constitutional: denies: fever, chills Respiratory: denies: cough, shortness of breath Cardiovascular: denies: chest pain, palpitations Gastrointestinal: denies: nausea, vomiting, abdominal pain - Medication Medications: Active Medications Generic Name Dose Route Start Last Admin Trade Name Freq PRN Reason Stop Dose Admin Acetaminophen 1,000 mg 03/15/20 09:30 03/19/20 16:16 Tylenol PO 1,000 mg Q6H PRN Administration Mild Pain (1-3) Amoxicillin/Clavulanate Potassium 500 mg 03/17/20 21:00 03/21/20 20:06 Augmentin PO 500 mg Q12HR [facility]ID Administration Aspirin 325 mg 03/17/20 09:00 03/21/20 06:07 Ecotrin PO 325 mg DAILY [facility] Administration Atorvastatin Calcium 40 mg 03/18/20 21:00 03/21/20 20:09 Lipitor PO 40 mg HS [facility] Administration Bumetanide 1 mg 03/21/20 09:00 03/21/20 20:08 Bumex PO 1 mg BID [facility] Administration Carvedilol 6.25 mg 03/17/20 08:00 03/21/20 16:02 Coreg PO 6.25 mg BID-WM [facility]ID Administration Cyanocobalamin 500 mcg 03/18/20 09:00 03/21/20 06:08 Vitamin B-12 PO 500 mcg DAILY [facility] Administration Duloxetine HCl 60 mg 03/16/20 21:00 03/21/20 20:08 Cymbalta PO 60 mg BID [facility] Administration Fenofibrate 145 mg 03/17/20 09:00 03/21/20 06:06 Tricor PO 145 mg DAILY [facility] Administration Fish Oil 1,000 mg 03/17/20 09:00 03/21/20 06:08 Fish Oil PO 1,000 mg DAILY [facility] Administration Gabapentin 600 mg 03/16/20 15:00 03/21/20 20:07 Neurontin PO 600 mg TID [facility] Administration Milrinone Lactate/Dextrose 20 100 mls @ 11.14 mls/hr 03/16/20 19:15 03/22/20 04:19 mg/ Device IVPB 100 mls INF [facility] Administration Protocol 0.5 MCG/KG/MIN Insulin Human Lispro 0 units 03/15/20 09:30 03/20/20 18:01 Humalog SC 6 unit .MILD SLIDING SCALE PRN Administration Mild Correctional Scale Insulin Human Lispro 0 units 03/15/20 09:30 03/21/20 21:46 Humalog SC 2 unit .BEDTIME SLIDING SC PRN Administration Bedtime Correctional Scale Multivitamins 1 tab 03/17/20 09:00 03/21/20 06:08 Theragran PO 1 tab DAILY [facility] Administration Mupirocin 0 gm 03/18/20 15:00 03/21/20 20:07 Bactroban 2% Ointment TOP 1 applic TID [facility] Administration Pantoprazole Sodium 40 mg 03/18/20 09:00 03/21/20 06:06 Protonix PO 40 mg DAILY [facility] Administration Sodium Chloride 10 ml 03/15/20 21:00 03/21/20 20:09 Flush - Normal Saline IVF Not Given Q12HR [facility] Tramadol HCl 100 mg 03/17/20 21:00 03/21/20 20:08 Ultram PO 100 mg HS [facility] Administration Tramadol HCl 50 mg 03/18/20 13:20 03/21/20 16:04 Ultram PO 50 mg Q6H PRN Administration Pain - Exam General Appearance: NAD, awake alert ENT: moist mucosa Heart: RRR, no murmur, no gallops, no rubs Respiratory: CTAB, no wheezes, no rales, no ronchi Gastrointestinal: soft, non-tender, non-distended, normal bowel sounds Extremities: no edema Psychiatric: normal affect, normal behavior, A&O x 3 Hosp A/P (1) Acute on chronic systolic (congestive) heart failure Code(s): I50.23 - ACUTE ON CHRONIC SYSTOLIC (CONGESTIVE) HEART FAILURE Status : Acute (2) Ischemic cardiomyopathy Code(s): I25.5 - ISCHEMIC CARDIOMYOPATHY Status: Chronic (3) CKD (chronic kidney disease), stage III Code(s): N18.3 - CHRONIC KIDNEY DISEASE, STAGE 3 (MODERATE) Status: Chronic (4) DM II (diabetes mellitus, type II), controlled Code(s): E11.9 - TYPE 2 DIABETES MELLITUS WITHOUT COMPLICATIONS Status: Chronic (5) Tobacco abuse Code(s): Z72.0 - TOBACCO USE Status: Chronic (6) Normocytic anemia Code(s): D64.9 - ANEMIA, UNSPECIFIED Status: Chronic - Plan continue antibiotics, PT/OT, director social service, out of bed/ambulate, DVT proph w/ SCDs Excellent diuresis, lasix discontinued, on Bumex BID with good urine output Continuing Milrinone gtt Coreg/ASA, cannot tolerate Entresto while on the Milrinone Tobacco cessation resources Resumed home meds Wound care consulted and bactroban for hand wound- improving No intervention during cath, will likely need f/u for heart transplant Transfer arranged to [place] as per Dr. Sampson's recommendations, they have a bed this AM and patient awaiting transport
[2020-03-22 07:54] LABS: #Basophils 0.1 thou/uL (0.0-0.2); #Eosinphils 0.2 thou/uL (0.0-0.7); #Lymphocytes 2.1 thou/uL (1.20-3.40); #Monocytes 0.6 thou/uL (0.11-0.59); #Neutrophils 2.8 thou/uL (1.40-6.50); %Basophils 1.2 % (0.0-1.0); %Eosinophils 4.2 % (0.0-10.0); %Lymphocytes 36.7 % (21.0-51.0); %Monocytes 10.2 % (0.0-10.0); %Neutrophils 47.7 % (42.0-75.0); Hemoglobin 10.9 g/dL (14.0-18.0); Mean Corpuscular HGB CONC 31.3 g/dL (32.0-36.0); Mean Corpuscular Hemoglobin 24.2 pg (27.0-31.0); Mean Corpuscular Volume 77.3 fL (78.0-98.0); Mean Platelet Volume 9.1 fL (7.4-10.4); Platelet Count 282 thou/uL (130-400); Red Blood Cell (RBC) Count 4.49 mill/uL (4.70-6.10); White Blood Cell (WBC) Count 5.8 thou/uL (4.8-10.8)
[2020-03-22] MEDS ORDERED: Spironolactone 25 MG TAB PO SCH (08:00)
[2020-03-22] MEDS: Fish Oil 1,000 MG CAP PO SCH (08:11)
[2020-03-22] MEDS: Amoxicillin/Potassium Clav 500 MG TAB PO SCH (08:11)
[2020-03-22] MEDS: Gabapentin 300 MG CAP PO SCH (08:11)
[2020-03-22] MEDS: Fenofibrate Nanocrystallized 145 MG TAB PO SCH (08:11)
[2020-03-22] MEDS: Mupirocin 2% Ointment 22 GM Tube TOP SCH (08:11)
[2020-03-22] MEDS: Multivit, Therapeutic 1 TAB PO SCH ×2 (08:11→08:12)
[2020-03-22] MEDS: Carvedilol 6.25 MG TAB PO SCH (08:13)
[2020-03-22] MEDS: DULoxetine 60 MG CAP PO SCH (08:13)
[2020-03-22] MEDS: Cyanocobalamin (Vitamin B-12) 1,000 MCG TAB PO SCH (08:13)
[2020-03-22] MEDS: Aspirin 325 mg Enteric Coated Tablet PO SCH (08:14)
[2020-03-22 08:17] LABS: ALT (SGPT) 18 U/L (8-55); AST (SGOT) 22 U/L (5-34); Albumin 4.8 g/dL (3.5-5.0); Alkaline Phosphatase 51 U/L (40-110); Anion Gap 17 mmol/L (10-20); BUN (Urea Nitrogen) 28 mg/dL (8.4-25.7); Bilirubin, Total 1.1 mg/dL (0.2-1.2); Calc. Creatinine Clearance 50 mL/min (70-130); Calcium 10.1 mg/dL (7.8-10.44); Carbon Dioxide 26 mmol/L (22-29); Chloride 100 mmol/L (98-107); Estimated GFR-MDRD 41; Globulin 3.1 g/dL (2.4-3.5); Glucose 156 mg/dL (70-105); Potassium 3.8 mmol/L (3.5-5.1); Protein, Total 7.9 g/dL (6.0-8.3); Sodium 139 mmol/L (136-145)
[2020-03-22] MEDS: traMADol HCl 50 MG TAB PO PRN (08:18)
[2020-03-22] MEDS ORDERED: Bumetanide 1 MG TAB PO SCH (09:00)
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
[2020-03-22 11:12] VITALS: BP 105/64; TEMP 98
--- NOTE | 2020-03-22 12:15 | PDOC.CPN ---
- Subjective Date: 03/22/20 Time: 12:24 Interval history: The pt seen and examined. No overnight events. No cardiac complaints. - Objective Allergies/Adverse Reactions: Allergies Allergy/AdvReac Type Severity Reaction Status Date / Time No Known Allergies Allergy Unverified 03/15/20 08:36 Visit Medications: Current Medications Acetaminophen (Tylenol) 1,000 mg PO Q6H PRN PRN Reason: Mild Pain (1-3) Last Admin: 03/19/20 16:16 Dose: 1,000 mg Acetaminophen/Codeine Phosphate (Tylenol #3) 1 tab PO Q4H PRN PRN Reason: Mild Pain (1-3) Acetaminophen/Codeine Phosphate (Tylenol #3) 2 tab PO Q4H PRN PRN Reason: Moderate Pain (4-6) Amoxicillin/Clavulanate Potassium (Augmentin) 500 mg PO Q12HR [facility] Last Admin: 03/22/20 08:11 Dose: 500 mg Aspirin (Ecotrin) 325 mg PO DAILY [facility] Last Admin: 03/22/20 08:14 Dose: 325 mg Atorvastatin Calcium (Lipitor) 40 mg PO HS [facility] Last Admin: 03/21/20 20:09 Dose: 40 mg Benzonatate (Tessalon) 100 mg PO Q6H PRN PRN Reason: Cough Bumetanide (Bumex) 1 mg PO DAILY [facility] Last Admin: 03/22/20 08:14 Dose: 1 mg Carvedilol (Coreg) 6.25 mg PO BID-WM [facility] Last Admin: 03/22/20 08:13 Dose: 6.25 mg Cyanocobalamin (Vitamin B-12) 500 mcg PO DAILY [facility] Last Admin: 03/22/20 08:13 Dose: 500 mcg Dextrose/Water (Dextrose 50%) 25 gm SLOW IVP PRN PRN PRN Reason: Hypoglycemia Duloxetine HCl (Cymbalta) 60 mg PO BID [facility] Last Admin: 03/22/20 08:13 Dose: 60 mg Fenofibrate (Tricor) 145 mg PO DAILY [facility] Last Admin: 03/22/20 08:11 Dose: 145 mg Fish Oil (Fish Oil) 1,000 mg PO DAILY [facility] Last Admin: 03/22/20 08:11 Dose: 1,000 mg Gabapentin (Neurontin) 600 mg PO TID [facility] Last Admin: 03/22/20 08:11 Dose: 600 mg Glucagon (Glucagon) 1 mg IM PRN PRN PRN Reason: Hypoglycemia Hydralazine HCl (Apresoline) 10 mg SLOW IVP Q4H PRN PRN Reason: SBP > 180 and HR < 70 Dextrose/Water (D5w) 1,000 mls @ 0 mls/hr IV .Q0M PRN PRN Reason: Hypoglycemia Milrinone Lactate/Dextrose 20 (mg/ Device) 100 mls @ 11.14 mls/hr IVPB INF DAVID ; Protocol Last Admin: 03/22/20 04:19 Dose: 100 mls Sodium Chloride (Normal Saline 0.9%) 200 mls @ 0 mls/hr IV PRN PRN PRN Reason: SBP < 90 Insulin Human Lispro (Humalog) 0 units SC .MILD SLIDING SCALE PRN PRN Reason: Mild Correctional Scale Last Admin: 03/20/20 18:01 Dose: 6 unit Insulin Human Lispro (Humalog) 0 units SC .BEDTIME SLIDING SC PRN PRN Reason: Bedtime Correctional Scale Last Admin: 03/21/20 21:46 Dose: 2 unit Multivitamins (Theragran) 1 tab PO DAILY [facility] Last Admin: 03/22/20 08:12 Dose: 1 tab Mupirocin (Bactroban 2% Ointment) 0 gm TOP TID [facility] Last Admin: 03/22/20 08:11 Dose: 1 applic Nitroglycerin (Nitrostat) 0.4 mg SL Q5MIN PRN PRN Reason: Chest Pain Ondansetron HCl (Zofran Odt) 4 mg PO Q6H PRN PRN Reason: Nausea/Vomiting Ondansetron HCl (Zofran) 4 mg IVP Q6H PRN PRN Reason: Nausea/Vomiting Pantoprazole Sodium (Protonix) 40 mg PO DAILY [facility] Last Admin: 03/22/20 08:12 Dose: 40 mg Sodium Chloride (Flush - Normal Saline) 10 ml IVF Q12HR [facility] Last Admin: 03/22/20 08:14 Dose: 10 ml Sodium Chloride (Flush - Normal Saline) 10 ml IVF PRN PRN PRN Reason: Saline Flush Spironolactone (Aldactone) 25 mg PO QAM-WM [facility] Last Admin: 03/22/20 08:13 Dose: 25 mg Tramadol HCl (Ultram) 100 mg PO HS [facility] Last Admin: 04/21/20 20:08 Dose: 100 mg Tramadol HCl (Ultram) 50 mg PO Q6H PRN PRN Reason: Pain Last Admin: 03/22/20 08:18 Dose: 50 mg Vital Signs & Weight: Vital Signs Temp Pulse Pulse Pulse Resp BP BP 03/22/20 11:11 98 F 91 16 03/22/20 09:26 102 H 101 H 107/69 111/68 03/22/20 07:01 98.3 F 92 16 03/22/20 03:36 98.6 F 91 18 03/22/20 01:15 BP BP BP Pulse Ox Pulse Ox Pulse Ox 03/22/20 11:11 105/64 99 03/22/20 09:26 97 98 03/22/20 07:01 116/72 97 03/22/20 03:36 108/68 94 L 03/22/20 01:15 95 Admit Weight 161 lb Weight 164 lb - Physical Exam General: alert & oriented x3 HEENT: mucus membranes moist Neck: supple neck Cardiac: regular rate and rhythm, S1/S2 Lungs: clear to auscultation Extremities: no edema - Labs Result Diagrams: 03/22/20 07:38 03/22/20 07:38 Troponin/CKMB CK-MB (CK-2) 2.0 ng/mL (0-6.6) 03/15/20 05:40 Troponin I 0.030 ng/mL (< 0.028) H 03/16/20 17:43 - Telemetry Sinus rhythms and dysrhythmias: sinus rhythm - Assessment/Plan Assessment/Plan: 1. Acute on Chronic systolic HF with EF 15-20% - stable with Bumax 1mg qd, Coreg 6.25mg BID, and Milrinone 0.5mcg/kg/min; S/p LHC with 30% stenosis in mid Lt Cx, 30% in prox RCA and 50% in dist RCA with EF <20%; Plan to tx to [facility] for LVAD by Dr Janes Echevarria; Appreciate Dr Sampson's insight; 2. Ischemic CMY with hx of [facility] AICD in 2013 3. CAD with hx of stent x1 in LAD in 2013 - S/p LHC with 30% stenosis in mid Lt Cx, 30% in prox RCA and 50% in dist RCA with EF <20%; On Coreg, ASA, and Lipitor 4. HTN - mildly hypotensive with current medication; cont. to monitor 5. HLD - on statin 6. DM type 2 7. Chronic pain syndrome - the pt is willing to stop marijuana 8. Mod-sever MR - cont. to monitor 9. Tobacco and ilicit drug abuse - the pt is willing to start smoking and ilicit drug cessation MAR reviewed * Echo on 03/15/2020 with EF 15-20%, mild LAE, mod-severe MR, mild-mod TR, and mild MO * S/p LHC with 30% stenosis in mid Lt Cx, 30% in prox RCA and 50% in dist RCA with EF <20% * Plan to tx to [facility] for LVAD by Dr Janes Echevarria Pt. seen and eval. by me. I agree with the a/P by the [employer]. He is ready to transfer to [place] for further evaluation in anticipation of LVAD and possible future transplant. junie
--- NOTE | 2020-03-22 15:22 | DIS ---
DATE OF ADMISSION: 03/16/2020 DATE OF DISCHARGE: 03/22/2020 PRIMARY CARE PHYSICIAN: Elena Doe. REASON FOR ADMISSION: Shortness of breath and dyspnea on exertion. DIAGNOSES AT DISCHARGE: 1. Acute on chronic systolic congestive heart failure with an ejection fraction of 15% to 20%, requiring milrinone drip. 2. Coronary artery disease. 3. Ischemic cardiomyopathy with AICD in place. 4. Hypertension. 5. Hyperlipidemia. 6. Diabetes mellitus type 2. 7. Chronic pain syndrome. 8. Tobacco abuse. 9. Chronic normocytic anemia. PROCEDURES: 1. Echocardiogram showing an ejection fraction of 15% to 20% with moderate to severe mitral regurgitation. 2. Cardiac catheterization showing severely impaired ventricular function, LAD with a previous patent stent, left circumflex with a 50% long lesion, and RCA with a 30% to 50% lesion. CONSULTATIONS: 1. Cardiology, Dr. Vital. 2. Heart failure specialist, Dr. Sampson. SUMMARY OF HOSPITAL COURSE: This is a 54-year-old male with a previous history of ischemic cardiomyopathy and a previous AICD placed, who had had some improvement in his ejection fraction, was doing well symptomatically until 2 to 3 weeks before presentation. He started to get some chest pain and coughing, thought he might have COVID so he self-isolated. However, his symptoms got severely worsened, so the patient came to the emergency room. He was found to be in acute congestive heart failure with depressed ejection fraction on his echocardiogram. Dr. Vital was consulted and she consulted Dr. Sampson. They did start him on milrinone drip and he started to diurese well. He was refractory to diuresis before that, eventually lost quite a bit of fluid weight and was able to start ambulating in the hallways and even lay down flat. It was at that point, he was able to get his cardiac catheterization, which did not show any beneficial intervention. At that point, after discussion with the patient, Dr. Sampson arranged transfer to [facility] in [place] as he will need a heart failure specialist consultation and for either artificial device or heart transplant. Bed became available today and so the patient is being transferred over to [facility]. Discharge management is transfer to [facility] and follow up with them to prepare for possible heart transplant. Job ID: [id number]
--- NOTE | 2020-03-23 04:00 | PQF ---
FAMILIA CURTIS RYAN ANDREW MD [id number] [facility] [id number] CLINICAL DOCUMENTATION CLARIFICATION FORM: POST DISCHARGE Addendum to original discharge summary date: ____ Late entry note date: __ DATE: 03/23/20 ATTN: Joce Nevarez Please exercise your independent, professional judgment in responding to the clarification form. Clinical indicators are provided on the bottom of this form for your review Can you please further clarify the diagnosis fo the patient? Please check appropriate box(s): [ ] NSTEMI (WA type I) [ X ] NSTEMI due to Demand Ischemia (AMI Type II) [ ] Demand Ischemia without WA [ ] Other diagnosis please specify [ ] Unable to determine In addition, please specify: Present on Admission (POA): [ X ] Yes [ ] No [ ] Unable to determine CLINICAL INDICATORS - SIGNS / SYMPTOMS / LABS ED Provider pg.4- elevated troponin H and P pg.4- Non-ST elevation myocardial infarction type 2. Suspect demand ischemia Cardiology PN 03/16 pg.3- indeterminate trop due to demand ischemia 2/2 acute on chronic systolic CHF Laboratory- Troponin I 0.067H, 0.052H, 0.060H, 0.074H, 0.030H Hospitalist PN 03/17 pg.7- NSTEMI (non ST- elevation myocardial infarction RISKS: HTN- H and P pg.1 Tobacco abuse- H and P pg.1 Marijuana abuse- H and P pg.1 DM2- H and P pg.2 CKD3- H and P pg.3 Cardiomyopathy- DS pg.1 Acute on chronic systolic CHF exacerbation- DS pg.1 TREATMENTS: Echocardiogram 03/15 [facility] 03/16-[facility] Procedural report Cardiology Consult Dr. Sampson 03/16 IV Lasix- MAR Aspirin 81 mg PO- MAR Heparin Sodium 1000ml- IV- MAR Nitroglycerin 0.4 mg SL- FEB 01 (This form is maintained as a part of the permanent medical record) 2014 [employer] All Rights Reserved [email or web address]
== END 2020-03-22 12:16 | disposition short-term general hospital (02) | DRG 280 ==
LOC: ERS 05:11 → 2SE 06:40 → OBSVTOIN 03-16 11:14 → 2NO 03-18 18:05
PROVIDERS: ADMIT Emergency Medicine; ATTEND Family Medicine
PROC: 4A023N8 Measurement of Cardiac Sampling and Pressure, Bilateral, Percutaneous Approach (ICD-10-PCS; principal; 2020-03-21)
PROC: B2161ZZ Fluoroscopy of Right and Left Heart using Low Osmolar Contrast (ICD-10-PCS; 2020-03-21)
PROC: 4A1239Z Monitoring of Cardiac Output, Percutaneous Approach (ICD-10-PCS; 2020-03-21)
DX: I13.0 Hypertensive heart and chronic kidney disease with heart failure and stage 1 through stage 4 chronic kidney disease, or unspecified chronic kidney disease (principal); I50.23 Acute on chronic systolic (congestive) heart failure; I21.A1 Myocardial infarction type 2; N17.9 Acute kidney failure, unspecified; I69.154 Hemiplegia and hemiparesis following nontraumatic intracerebral hemorrhage affecting left non-dominant side; F17.210 Nicotine dependence, cigarettes, uncomplicated; K21.9 Gastro-esophageal reflux disease without esophagitis; E78.5 Hyperlipidemia, unspecified; E11.22 Type 2 diabetes mellitus with diabetic chronic kidney disease; N18.3 Chronic kidney disease, stage 3 (moderate); G89.4 Chronic pain syndrome; F32.9 Major depressive disorder, single episode, unspecified; I25.5 Ischemic cardiomyopathy; I25.10 Atherosclerotic heart disease of native coronary artery without angina pectoris; D63.1 Anemia in chronic kidney disease; F12.10 Cannabis abuse, uncomplicated; I34.0 Nonrheumatic mitral (valve) insufficiency; I95.9 Hypotension, unspecified; I25.2 Old myocardial infarction; Z95.5 Presence of coronary angioplasty implant and graft; Z95.810 Presence of automatic (implantable) cardiac defibrillator; Z79.01 Long term (current) use of anticoagulants; Z79.899 Other long term (current) drug therapy; Z79.84 Long term (current) use of oral hypoglycemic drugs; Z79.82 Long term (current) use of aspirin; Z28.21 Immunization not carried out because of patient refusal
CPT/HCPCS: 36415; 36416; 71045; 80048; 80053; 82274; 82553; 82728; 82810; 83036; 83540; 83735; 83880; 84443; 84484; 85007; 85014; 85018; 85025; 85027; 85046; 85049; 86850; 86900; 86901; 93005; 93010; 93306; 93460; 93561; 93798; 96374; 96375; 99152; 99153; C1769; J1644; J1650; J1885; J1940; J2250; J2260; J2916; J3475; J3490; P9047; Q9967